=== PATIENT | female | born 1965 | race Caucasian/White ===

== ENCOUNTER 2021-05-03 09:46 | Outpatient (RCR) | payer MEDICAID, SELFPAY ==
[2021-05-03 10:08] VITALS: BP 153/69; PULSE 105; TEMP 36.4
--- NOTE | 2021-05-03 13:30 | HP.PCM_ITS ---
History of Present Illness Date of Service: 05/03/21 Chief Complaint: Lower back ulcer History of Wound: Paige is a very pleasant 56-year old female who presents to the wound healing center today (05/03/2021) for transition of care for a pressure ulcer of her lower back. She has a history of neuropathy, and COVID-19 infection which required intubation and ECMO. It was during the time that she was receiving ECMO that she developed her lower back ulcer. She is not a smoker, she is nondiabetic, and she does not take anticoagulation. Since her COVID-19 infection, she requires daily use of oxygen at 2 L/min. She recently completed a course of steroids for bronchitis. She was previously being treated for her pressure ulcer in [place], [place]. Throughout her course, her wound care has consisted of a surgical debridement, weekly excisional debridements, the use of the wound VAC, and Aquacel Ag dressings. She recently relocated to [place]. Since relocating, she has ran out of her Aquacel and wound supplies, and has been using daily wet-to-dry saline dressing changes. She cleanses the wound with saline. She previously had a tunnel within her lower back ulcer at 12:00, though her son (who performs her dressing changes) believes this has closed. She sleeps on her stomach at night. She has not been on any antibiotics in recent months. She had lab work completed a couple months ago with her primary care doctor, which she reports were unremarkable. The patient denies fever, chills, general malaise, or poor appetite. The patient has not had increased redness, swelling, or purulent/malodorous drainage from affected area. She rarely has any significant pain from her ulcer. [facility] Medical History (Updated 05/03/21 @ 14:03 by Jeanna Deras NP, RESPIRATORY EQUIPMENT ASSISTANT-C) Acute hypoxemic respiratory failure due to COVID-19 Obesity Pressure ulcer of unspecified part of back, stage 3 Home Medications acetaminophen [Tylenol] 325 mg PO Q6H 05/03/21 [History Last Taken Unknown] gabapentin 400 mg PO TID 05/03/21 [History Last Taken Unknown] ibuprofen 400 mg PO Q6H 05/03/21 [History Last Taken Unknown] mecobalamin (vitamin B12) [B12 Active] 1,000 mcg PO DAILY 05/03/21 [History Last Taken Unknown] ROS Constitutional Constitutional: Denies chills, fever(s) or night sweats Eyes Eyes: Denies change in vision or double vision ENT HEENT: Denies lip swelling or tongue swelling Cardiovascular Cardiovascular: Denies chest pain, leg edema or palpitations Respiratory/Chest Respiratory/Chest: Reports portable oxygen @ home and shortness of breath with exertion Gastrointestinal Gastrointestinal: Denies diarrhea, nausea or vomiting Genitourinary Genitourinary: Denies dysuria or hematuria Musculoskeletal Musculoskeletal: Reports difficulty walking, extremity pain, numbness, tingling and other Details: Ambulates with walker Integumentary Integumentary: Reports wounds; Denies rash Neurologic Neurologic: Reports numbness; Denies abnormal speech or focal weakness Endocrine Endocrinology: Denies cold intolerance, heat intolerance, polydipsia or polyuria Hematologic/Lymphatic Hematologic/Lymphatic: Denies easy bleeding or easy bruising Vital Signs Vital Signs Vital Signs: 05/03/21 10:08 Temperature 97.5 F L Temperature Source Temporal Pulse Rate 105 H Blood Pressure 153/69 H Blood Pressure Mean 97 Blood Pressure Source Monitor Blood Pressure Position Semi-Fowlers Blood Pressure Location Left Arm Physical Exam Const alert, no apparent distress and healthy appearing General Appearance: cooperative, comfortable and well kempt Nutritional Appearance: obese HEENT Head and Scalp: normocephalic and atraumatic Eyes EOMs intact bilaterally Neck supple and no JVD Resp normal respiratory effort, normal air movement and no use of accessory muscles Resp Narrative: On oxygen via nasal cannula 2 L/min Effort and Inspection: able to speak in complete sentences Auscultation: clear to auscultation bilaterally; Negative for crackles, rales, rhonchi or wheezes Cardio regular rate and regular rhythm Extremity normal capillary refill General Extremity: Negative for clubbing or cyanosis Skin Wounds: wounds noted No malodorous Wound Narrative: Midline lower back ulcer with subcutaneous layer exposed. There is a 10 mm tunnel at 12:00. No undermining or probing to bone. There is a small amount of devitalized tissue. No periulcer erythema, warmth or tenderness. No purulent or malodorous drainage. Neuro oriented x3, moves all extremities and no focal motor deficits Psych mental status grossly normal, cooperative and affect normal Insight: insight good Judgement: judgement good Debridement Note Debridement Note Wound debrided: Low back ulcer Laterality: Not Applicable Wound Grade/Stage: stage 3 Type of Debridement: Excisional debridement Anesthesia Used: 5% Lidocaine Gel Depth: in the subcutaneous layer Percentage of wound debrided: 100 Instrument Used: 3mm curette Tissue Removed: Slough and devitalized tissue Severity: Fat Layer Exposed Amount of bleeding with debridement: Mild Bleeding Controlled with: Pressure Patient tolerated procedure: Patient tolerated procedure well Post-Debridement Measurements and Additional Note: Post-Debridement Measurements/Treatment WILLIAM - Nurse 1 - General Ulcer Assessment Start: 05/03/21 10:08 Freq: Status: Active Protocol: CINTIA Activity Type Activity Date Activity User E-Sign Co-Sign Detail Recorded Client Recorded Date Recorded By Document 05/03/21 10:08 REMIGIO [id number] 05/03/21 10:21 REMIGIO 05/03/21 10:08 WILLIAM - Today's Visit Information Type of service Initial Visit Arrival Mode Ambulatory, Walker Patient Identification Verified (Name & Yes ) Vital Signs Temperature (97.8 F-99.1 F) 97.5 F L Temperature Source Temporal Pulse Rate (60-100) 105 H Pulse Location Monitor Blood Pressure (90/60-120/80) 153/69 H Blood Pressure Mean (mm Hg) 97 Source Monitor Position Semi-Fowlers Blood Pressure Location Left Arm History Since Last Visit- (Skip if this is Patient's initial visit) Have you changed medications since your No last visit? Any new allergies or adverse reactions No Had a fall/change in ADL's that may No increase risk of falls Signs or symptoms of abuse and/or No neglect since last visit Have you been in the hospital since your No last visit? Has dressing in place as prescribed Yes Has compression in place as prescribed N/A Has offloadiing in place as prescribed N/A Experienced any changes in pain level or No management Left Footwear Regular Shoe Right Footwear Regular Shoe Pain Scale: 0-10 Numeric Is Patient Pain Free? Yes - Nurse 1 - General Ulcer Measurement Start: 05/03/21 10:08 Freq: Status: Active Protocol: Activity Type Activity Date Activity User E-Sign Co-Sign Detail Recorded Client Recorded Date Recorded By Document 05/03/21 10:08 REMIGIO [id number] 05/03/21 10:21 REMIGIO 05/03/21 10:08 Wound Center Nurse 1 #1 Lower Back -Current Size (cm) - Length 3 -Current Size (cm) - Width 0.6 -Current Size (cm) - Depth 0.1 -Total Square Cm 1.8 -Exudate Amt Small -Exudate Type Serosanguineous -Wound Margin Distinct, Outline Attached -Granulation Amt Medium (34-66%) -Granulation Quality Red -Necrosis Amt Medium (34-66%) -Necrotic Tissue Type Adherent Slough -Texture (Joseline-wound Skin Appearance) Assessed, Scarring -Moisture (Joseline-wound Skin Appearance) Assessed, Maceration -Color (Joseline-wound Skin Appearance) No Abnormality, Assessed -Temperature (Joseline-wound Skin No Abnormality Appearance) (Pt Warm) -Tenderness on Palpation (Joseline-wound No Skin Appearance) -Ulcer Cleansing Rinsed/ Irrigated with Saline -Foul Odor after Cleansing No -Anesthetic Used 5% Lidocaine Gel WC - Nurse 2 - General Ulcer CM Notes Start: 05/03/21 10:08 Freq: Status: Active Protocol: Activity Type Activity Date Activity User E-Sign Co-Sign Detail Recorded Client Recorded Date Recorded By Document 05/03/21 12:59 PL [id number] 05/03/21 13:00 PL 05/03/21 12:59 Wound Center Nurse 2 -Time 10:50 -Correct Patient Yes -Correct Side, Site, Position Yes -Correct Procedure Yes -Procedure Performed Yes -Type of Procedure Debridement -Clinical Debridement Subcutaneous -Tissue Removed Subcutaneous -Post Debridement (cm) - Length 1.2 -Post Debridement (cm) - Width 3.8 -Post Debridement (cm) - Depth 0.2 -Total Square (Post) (cm) 4.56 -Area of Debridement (cm) - Length 1.2 -Area of Debridement (cm) - Width 3.8 -Total Square (Area) (cm) 4.56 -Tunneling No -Undermining/Tunneling No -Circular Undermining No -Wound/Ulcer Outcome Not Healed -Ulcer Cleansing Rinsed/ Irrigated with Saline -Foul Odor after Cleansing No -Bioengineered Tissue No -Bleeding Controlled with Pressure -Treatment Response Procedure Tolerated Well -Debridement - Subq, 1st 20sq cm Yes WC - Nurse 3 - General Ulcer D/C NN Start: 05/03/21 10:08 Freq: Status: Active Protocol: Activity Type Activity Date Activity User E-Sign Co-Sign Detail Recorded Client Recorded Date Recorded By Document 05/03/21 11:10 GIOVANNA [id number] 05/03/21 11:11 GIOVANNA 05/03/21 11:10 Wound Care Nurse 3 -Ulcer Cleansing Rinsed/ Irrigated with Saline -Primary Dressing Applied Aquacel Rope -Primary Dressing Covered/Secured with Dry Gauze, Secured with Tape -Aquacel Rope 1 Pain Scale: 0-10 Numeric Is Patient Pain Free? Yes WC - Visit Discharge Discharge Condition Stable Ambulatory Status Ambulatory Transportation Private Auto Charges/Coding Visit Charges Office Visits / Consults: 33740 OV L4 New Procedures Integumentary 111xxx-113xx: [id number] [place] subq tissue 20 sq cm/< Assessment/Plan Assessment/Plan (1) Pressure ulcer of unspecified part of back, stage 3: CODE(S): L89.103 - Pressure ulcer of unspecified part of back, stage 3 (2) Obesity: CODE(S): E66.9 - Obesity, unspecified QUALIFIERS: Obesity type: unspecified obesity type Obesity classification: unspecified obesity classification Serious obesity comorbidity presence: unspecified whether serious comorbidity present Qualified Code(s): E66.9 - Obesity, unspecified PLAN: Debridement performed today in clinic as annotated above. Aquacel Ag rope packed into 12:00 tunnel and applied to wound base. At home wound-care instructions: Change Aquacel Ag rope packing/dressing once daily or more frequently as needed due to contamination. Wash wounds daily with antibacterial soap and water, rinse with saline, and dry thoroughly before each dressing change. Compression: N/A Off-loading: The patient was instructed to avoid pressure and friction on the affected areas. Reposition every 2 hours at minimum. Frequent ambulation is encouraged. Diet: Patient encouraged to increase protein intake while taking caution to avoid high carbohydrate and/or sugar intake. Labs/cultures/imaging: Cultures deferred today due to absence of clinical signs of infection. We will continue to monitor. Recent lab work will be requested from patient's previous PCP. The need for repeat labs will be continually reassessed based on patient's progress. Follow-up: Return to clinic in 2 weeks for re-evaluation. Return sooner or report to the emergency room should symptoms worsen, or new symptoms arise. Note: [employer] speech recognition data security consultant software was used to create portions of this document. Sound-alike and misspelled words, as well as other data security consultant errors may be contained in the documentation.
== END 2021-05-14 23:59 ==
LOC: WC 09:46
PROVIDERS: Visit Provider Nurse Practitioner Family
DX: L89.103 Pressure ulcer of unspecified part of back, stage 3 (principal); J96.01 Acute respiratory failure with hypoxia; U09.9 Post COVID-19 condition, unspecified; E66.9 Obesity, unspecified; Z79.899 Other long term (current) drug therapy; Z79.1 Long term (current) use of non-steroidal anti-inflammatories (NSAID); Z99.81 Dependence on supplemental oxygen
CPT/HCPCS: 11042; 99213; G0463

== ENCOUNTER 2021-05-31 10:00 | Outpatient (RCR) | payer MEDICAID, SELFPAY ==
[2021-05-15 00:39] VITALS: BP 153/69; PULSE 105; TEMP 36.4
[2021-05-17 10:15] VITALS: BP 163/75; PULSE 73; TEMP 36.2
--- NOTE | 2021-05-17 14:29 | PCM.WC.PN ---
History of Present Illness Date of Service: 05/17/21 Chief Complaint: Lower back ulcer History of Wound: Paige is a very pleasant 56-year old female who presents to the wound healing center today (05/03/2021) for transition of care for a pressure ulcer of her lower back. She has a history of neuropathy, and COVID-19 infection which required intubation and ECMO. It was during the time that she was receiving ECMO that she developed her lower back ulcer. She is not a smoker, she is nondiabetic, and she does not take anticoagulation. Since her COVID-19 infection, she requires daily use of oxygen at 2 L/min. She recently completed a course of steroids for bronchitis. She was previously being treated for her pressure ulcer in [place], [place]. Throughout her course, her wound care has consisted of a surgical debridement, weekly excisional debridements, the use of the wound VAC, and Aquacel Ag dressings. She recently relocated to [place]. Since relocating, she has ran out of her Aquacel and wound supplies, and has been using daily wet-to-dry saline dressing changes. She cleanses the wound with saline. She previously had a tunnel within her lower back ulcer at 12:00, though her son (who performs her dressing changes) believes this has closed. She sleeps on her stomach at night. She has not been on any antibiotics in recent months. She had lab work completed a couple months ago with her primary care doctor, which she reports were unremarkable. The patient denies fever, chills, general malaise, or poor appetite. The patient has not had increased redness, swelling, or purulent/malodorous drainage from affected area. She rarely has any significant pain from her ulcer. Progress of Wound: Improvement in the tunneling depth of the patient's low back ulcer, though width of the ulcer is minimally increased today. The patient has been compliant with the use of Aquacel Ag rope, and has been tolerating this well. She reports some mild increase in her low back discomfort associated with her ulcer. The patient denies fever, chills, general malaise, or poor appetite. The patient has not had increased redness, swelling, or purulent/malodorous drainage from affected area. Objective Data Objective Data Vital Signs: Vital Signs Temp Pulse BP 97.1 F L 73 163/75 H 05/17/21 10:15 05/17/21 10:15 05/17/21 10:15 Charges/Coding Procedures Integumentary 111xxx-113xx: [id number] [place] subq tissue 20 sq cm/< Physical Exam Const alert, no apparent distress and healthy appearing General Appearance: cooperative, comfortable and well kempt Nutritional Appearance: obese HEENT Head and Scalp: normocephalic and atraumatic Eyes EOMs intact bilaterally Neck supple and no JVD Resp normal respiratory effort, normal air movement and no use of accessory muscles Resp Narrative: On oxygen via nasal cannula 2 L/min Effort and Inspection: able to speak in complete sentences Skin Wounds: wounds noted No malodorous Wound Narrative: Midline lower back ulcer with subcutaneous layer exposed. There is a tunnel at 12:00. No undermining or probing to bone. There is a small amount of devitalized tissue. No periulcer erythema, warmth or tenderness. No purulent or malodorous drainage. Neuro oriented x3, moves all extremities and no focal motor deficits Psych mental status grossly normal, cooperative and affect normal Insight: insight good Judgement: judgement good Debridement Note Debridement Note Wound debrided: Low back ulcer Laterality: Not Applicable Type of Debridement: Excisional debridement Anesthesia Used: 5% Lidocaine Gel Depth: in the subcutaneous layer Percentage of wound debrided: 100 Instrument Used: 3mm curette Tissue Removed: Slough and devitalized tissue Severity: Fat Layer Exposed Amount of bleeding with debridement: Mild Bleeding Controlled with: Pressure Patient tolerated procedure: Patient tolerated procedure well Post-Debridement Measurements and Additional Note: Post-Debridement Measurements/Treatment WILLIAM - Nurse 1 - General Ulcer Assessment Start: 05/17/21 10:15 Freq: Status: Active Protocol: CINTIA Activity Type Activity Date Activity User E-Sign Co-Sign Detail Recorded Client Recorded Date Recorded By Document 05/17/21 10:15 REMIGIO [id number] 05/17/21 10:17 REMIGIO 05/17/21 10:15 WILLIAM - Today's Visit Information Type of service Follow-up Visit (Physician/PEDIATRIC LICENSED PRACTICAL NURSE ) Arrival Mode Ambulatory, Walker Patient Identification Verified (Name & Yes ) Patient Requires Transmission-Based No Precautions Vital Signs Temperature (97.8 F-99.1 F) 97.1 F L Temperature Source Temporal Pulse Rate (60-100) 73 Pulse Location Monitor Blood Pressure (90/60-120/80) 163/75 H Blood Pressure Mean (mm Hg) 104 Source Monitor History Since Last Visit- (Skip if this is Patient's initial visit) Have you changed medications since your No last visit? Any new allergies or adverse reactions No Had a fall/change in ADL's that may No increase risk of falls Signs or symptoms of abuse and/or No neglect since last visit Have you been in the hospital since your No last visit? Has dressing in place as prescribed Yes Has compression in place as prescribed N/A Has offloadiing in place as prescribed N/A Experienced any changes in pain level or No management Left Footwear Regular Shoe Right Footwear Regular Shoe WC - Nurse 1 - General Ulcer Measurement Start: 05/17/21 10:15 Freq: Status: Active Protocol: Activity Type Activity Date Activity User E-Sign Co-Sign Detail Recorded Client Recorded Date Recorded By Document 05/17/21 10:15 AK [id number] 05/17/21 10:17 AK 05/17/21 10:15 Wound Center Nurse 1 #1 Lower Back -Combined with other wound No -Current Size (cm) - Length 1 -Current Size (cm) - Width 3 -Current Size (cm) - Depth 0.2 -Total Square Cm 3 -Photo Taken No -Epithelialization Small 1-33% -Tunneling No -Undermining/Tunneling No -Circular Undermining No -Exudate Amt Small -Exudate Type Serosanguineous -Wound Margin Distinct, Outline Attached -Granulation Amt Small (1-33%) -Granulation Quality [place] -Slough/Fibrin Yes -Necrosis Amt Small (1-33%) -Necrotic Tissue Type Adherent Slough -Structure Exposed N/A -Texture (Joseline-wound Skin Appearance) Assessed, Scarring -Moisture (Joseline-wound Skin Appearance) No Abnormality, Assessed -Color (Joseline-wound Skin Appearance) No Abnormality, Assessed -Temperature (Joseline-wound Skin No Abnormality Appearance) (Pt Warm) -Tenderness on Palpation (Joseline-wound No Skin Appearance) -Ulcer Cleansing Rinsed/ Irrigated with Saline -Foul Odor after Cleansing No -Anesthetic Used 5% Lidocaine Gel WC - Nurse 2 - General Ulcer CM Notes Start: 05/17/21 10:15 Freq: Status: Active Protocol: Activity Type Activity Date Activity User E-Sign Co-Sign Detail Recorded Client Recorded Date Recorded By Document 05/17/21 13:37 PL [id number] 05/17/21 13:38 PL 05/17/21 13:37 Wound Center Nurse 2 -Time 10:37 -Correct Patient Yes -Correct Side, Site, Position Yes -Correct Procedure Yes -Procedure Performed Yes -Type of Procedure Debridement -Clinical Debridement Subcutaneous -Tissue Removed Subcutaneous -Post Debridement (cm) - Length 1.2 -Post Debridement (cm) - Width 3.0 -Post Debridement (cm) - Depth 0.1 -Total Square (Post) (cm) 3.60 -Area of Debridement (cm) - Length 1.2 -Area of Debridement (cm) - Width 3.0 -Total Square (Area) (cm) 3.60 -Tunneling Yes -Tunneling Position (O'clock) 12 -Tunneling Distance (cm) 0.5 -Undermining/Tunneling No -Circular Undermining No -Wound/Ulcer Outcome Not Healed -Ulcer Cleansing Rinsed/ Irrigated with Saline -Foul Odor after Cleansing No -Bioengineered Tissue No -Bleeding Controlled with Pressure -Treatment Response Procedure Tolerated Well -Debridement - Subq, 1st 20sq cm Yes WC - Nurse 3 - General Ulcer D/C NN Start: 05/17/21 10:15 Freq: Status: Active Protocol: Activity Type Activity Date Activity User E-Sign Co-Sign Detail Recorded Client Recorded Date Recorded By Document 05/17/21 11:03 ND [id number] 05/17/21 11:05 ND 05/17/21 11:03 Wound Care Nurse 3 -Ulcer Cleansing Rinsed/ Irrigated with Saline -Primary Dressing Applied Aquacel Rope -Primary Dressing Covered/Secured with Dry Gauze, Secured with Tape -Aquacel Rope 1 WC - Visit Discharge Discharge Condition Stable Ambulatory Status Ambulatory Transportation Private Auto Medication Reconcilliation completed & No provided to patient/care provider Clinical Summary of Care Provided Yes Notes: educated on dressing Assessment/Plan Assessment/Plan (1) Pressure ulcer of unspecified part of back, stage 3: CODE(S): L89.103 - Pressure ulcer of unspecified part of back, stage 3 (2) Obesity: CODE(S): E66.9 - Obesity, unspecified QUALIFIERS: Obesity type: unspecified obesity type Obesity classification: unspecified obesity classification Serious obesity comorbidity presence: unspecified whether serious comorbidity present Qualified Code(s): E66.9 - Obesity, unspecified PLAN: Debridement performed today in clinic as annotated above. Aquacel Ag rope packed into 12:00 tunnel and applied to wound base. At home wound-care instructions: Change Aquacel Ag rope packing/dressing once daily or more frequently as needed due to contamination. Wash wounds daily with antibacterial soap and water, rinse with saline, and dry thoroughly before each dressing change. Compression: N/A Off-loading: The patient was instructed to avoid pressure and friction on the affected areas. Reposition every 2 hours at minimum. Frequent ambulation is encouraged. Diet: Patient encouraged to increase protein intake while taking caution to avoid high carbohydrate and/or sugar intake. Labs/cultures/imaging: Cultures collected today due to mild increase in ulcer related pain. Recent lab work will be requested from patient's previous PCP. The need for repeat labs will be continually reassessed based on patient's progress. Follow-up: Return to clinic in 2 weeks for re-evaluation. Return sooner or report to the emergency room should symptoms worsen, or new symptoms arise. Note: [employer] speech recognition educational assistant software was used to create portions of this document. Sound-alike and misspelled words, as well as other educational assistant errors may be contained in the documentation.
[2021-05-31 11:32] VITALS: BP 134/73; PULSE 95; TEMP 35.5
--- NOTE | 2021-06-03 20:30 | PCM.WC.PN ---
History of Present Illness Date of Service: 05/31/21 Chief Complaint: Lower back ulcer History of Wound: Paige is a very pleasant 56-year old female who presents to the wound healing center today (05/03/2021) for transition of care for a pressure ulcer of her lower back. She has a history of neuropathy, and COVID-19 infection which required intubation and ECMO. It was during the time that she was receiving ECMO that she developed her lower back ulcer. She is not a smoker, she is nondiabetic, and she does not take anticoagulation. Since her COVID-19 infection, she requires daily use of oxygen at 2 L/min. She recently completed a course of steroids for bronchitis. She was previously being treated for her pressure ulcer in [place], [place]. Throughout her course, her wound care has consisted of a surgical debridement, weekly excisional debridements, the use of the wound VAC, and Aquacel Ag dressings. She recently relocated to [place]. Since relocating, she has ran out of her Aquacel and wound supplies, and has been using daily wet-to-dry saline dressing changes. She cleanses the wound with saline. She previously had a tunnel within her lower back ulcer at 12:00, though her son (who performs her dressing changes) believes this has closed. She sleeps on her stomach at night. She has not been on any antibiotics in recent months. She had lab work completed a couple months ago with her primary care doctor, which she reports were unremarkable. The patient denies fever, chills, general malaise, or poor appetite. The patient has not had increased redness, swelling, or purulent/malodorous drainage from affected area. She rarely has any significant pain from her ulcer. Progress of Wound: Patient's wound has improved in size and appearance. Culture from 05/17/2021 was positive for 1+ MRSA and 1+ Proteus mirabilis; anaerobic studies were positive. She was started on a 10-day course of cefdinir, and a 10-day course of doxycycline. She is tolerating her antibiotics well. The patient denies fever, chills, general malaise, or poor appetite. The patient has not had increased redness, swelling, or purulent/malodorous drainage from affected area. Objective Data Objective Data Vital Signs: Vital Signs Temp Pulse BP 96 F L 95 134/73 H 05/31/21 11:32 05/31/21 11:32 05/31/21 11:32 Lab / Micro Data Micro: Microbiology 05/17/21 10:45 Wound Abcess - Back Gram Stain - Final 05/17/21 10:45 Wound Abcess - Back Wound Culture - Final Meth. resistant Staph. aureus Proteus mirabilis 05/17/21 10:45 Wound Abcess - Back Anaerobic Culture - Final Anaerobic cocci Charges/Coding Procedures Integumentary [id number]: [id number] [place] subq tissue 20 sq cm/< Physical Exam Const alert, no apparent distress and healthy appearing General Appearance: cooperative, comfortable and well kempt Nutritional Appearance: obese HEENT Head and Scalp: normocephalic and atraumatic Eyes EOMs intact bilaterally Neck supple and no JVD Resp normal respiratory effort, normal air movement and no use of accessory muscles Resp Narrative: On oxygen via nasal cannula 2 L/min Effort and Inspection: able to speak in complete sentences Skin Wounds: wounds noted No malodorous Wound Narrative: Midline lower back ulcer with subcutaneous layer exposed. No tunneling noted today. No undermining or probing to bone. There is a small amount of devitalized tissue. No periulcer erythema, warmth or tenderness. No purulent or malodorous drainage. Neuro oriented x3, moves all extremities and no focal motor deficits Psych mental status grossly normal, cooperative and affect normal Insight: insight good Judgement: judgement good Debridement Note Debridement Note Wound debrided: Low back ulcer Laterality: Not Applicable Type of Debridement: Excisional debridement Anesthesia Used: 5% Lidocaine Gel Depth: in the subcutaneous layer Percentage of wound debrided: 100 Instrument Used: 3mm curette Tissue Removed: Slough and devitalized tissue Severity: Fat Layer Exposed Amount of bleeding with debridement: Mild Bleeding Controlled with: Pressure Patient tolerated procedure: Patient tolerated procedure well Post-Debridement Measurements and Additional Note: Post-Debridement Measurements/Treatment WC - Nurse 1 - General Ulcer Assessment Start: 05/17/21 10:15 Freq: Status: Active Protocol: CINTIA Activity Type Activity Date Activity User E-Sign Co-Sign Detail Recorded Client Recorded Date Recorded By Document 05/17/21 10:15 AK [id number] 05/17/21 10:17 AK Document 05/31/21 11:32 AK [id number] 05/31/21 11:34 AK 05/17/21 05/31/21 10:15 11:32 WC - Today's Visit Information Type of service Follow-up Visit Follow-up Visit (Physician/COMMUNICATIONS DEPARTMENT CHAIR (Physician/COMMUNICATIONS DEPARTMENT CHAIR ) ) Arrival Mode Ambulatory, Ambulatory Walker Patient Identification Verified (Name & Yes Yes ) Patient Requires Transmission-Based No No Precautions Safety Precautions NA Vital Signs Temperature (97.8 F-99.1 F) 97.1 F L 96 F L Temperature Source Temporal Temporal Pulse Rate (60-100) 73 95 Pulse Location Monitor Monitor Blood Pressure (90/60-120/80) 163/75 H 134/73 H Blood Pressure Mean (mm Hg) 104 93 Source Monitor Monitor History Since Last Visit- (Skip if this is Patient's initial visit) Have you changed medications since your No No last visit? Any new allergies or adverse reactions No No Had a fall/change in ADL's that may No No increase risk of falls Signs or symptoms of abuse and/or No No neglect since last visit Have you been in the hospital since your No No last visit? Has dressing in place as prescribed Yes Yes Has compression in place as prescribed N/A N/A Has offloadiing in place as prescribed N/A N/A Experienced any changes in pain level or No No management Left Footwear Regular Shoe Regular Shoe Right Footwear Regular Shoe Regular Shoe WC - Nurse 1 - General Ulcer Measurement Start: 05/17/21 10:15 Freq: Status: Active Protocol: Activity Type Activity Date Activity User E-Sign Co-Sign Detail Recorded Client Recorded Date Recorded By Document 05/17/21 10:15 AK [id number] 05/17/21 10:17 AK Document 05/31/21 11:32 AK [id number] 05/31/21 11:34 AK 05/17/21 05/31/21 10:15 11:32 Wound Center Nurse 1 #1 Lower Back -Combined with other wound No No -Current Size (cm) - Length 1 2.5 -Current Size (cm) - Width 3 0.4 -Current Size (cm) - Depth 0.2 0.2 -Total Square Cm 3 1.00 -Photo Taken No No -Epithelialization Small 1-33% Small 1-33% -Tunneling No No -Undermining/Tunneling No No -Circular Undermining No No -Change in Wound Grade/Stage No -Exudate Amt Small Small -Exudate Type Serosanguineous Serosanguineous -Wound Margin Distinct, Distinct, Outline Outline Attached Attached -Granulation Amt Small (1-33%) -Granulation Quality [place] N/A -Slough/Fibrin Yes Yes -Necrosis Amt Small (1-33%) Medium (34-66%) -Necrotic Tissue Type Adherent Slough Adherent Slough -Structure Exposed N/A N/A -Texture (Joseline-wound Skin Appearance) Assessed, Assessed, Scarring Scarring -Moisture (Joseline-wound Skin Appearance) No Abnormality, No Abnormality, Assessed Assessed -Color (Joseline-wound Skin Appearance) No Abnormality, No Abnormality, Assessed Assessed -Temperature (Joseline-wound Skin No Abnormality No Abnormality Appearance) (Pt Warm) (Pt Warm) -Tenderness on Palpation (Joseline-wound No No Skin Appearance) -Ulcer Cleansing Rinsed/ Rinsed/ Irrigated with Irrigated with Saline Saline -Foul Odor after Cleansing No No -Anesthetic Used 5% Lidocaine 4% Lidocaine Gel Solution Lower Limb Edema Present No WC - Nurse 2 - General Ulcer CM Notes Start: 05/17/21 10:15 Freq: Status: Active Protocol: Activity Type Activity Date Activity User E-Sign Co-Sign Detail Recorded Client Recorded Date Recorded By Document 05/17/21 13:37 PL [id number] 05/17/21 13:38 PL Document 05/31/21 12:34 PL [id number] 05/31/21 12:36 PL 05/17/21 05/31/21 13:37 12:34 Wound Center Nurse 2 #1 Lower Back -Time 10:37 11:04 -Correct Patient Yes Yes -Correct Side, Site, Position Yes Yes -Correct Procedure Yes Yes -Procedure Performed Yes Yes -Type of Procedure Debridement Debridement -Clinical Debridement Subcutaneous Subcutaneous -Tissue Removed Subcutaneous Subcutaneous -Post Debridement (cm) - Length 1.2 0.8 -Post Debridement (cm) - Width 3.0 3.0 -Post Debridement (cm) - Depth 0.1 0.3 -Total Square (Post) (cm) 3.60 2.40 -Area of Debridement (cm) - Length 1.2 0.8 -Area of Debridement (cm) - Width 3.0 3.0 -Total Square (Area) (cm) 3.60 2.40 -Tunneling Yes No -Tunneling Position (O'clock) 12 -Tunneling Distance (cm) 0.5 -Undermining/Tunneling No No -Circular Undermining No No -Wound/Ulcer Outcome Not Healed Not Healed -Ulcer Cleansing Rinsed/ Rinsed/ Irrigated with Irrigated with Saline Saline -Foul Odor after Cleansing No No -Bioengineered Tissue No No -Bleeding Controlled with Pressure Pressure -Treatment Response Procedure Procedure Tolerated Well Tolerated Well -Debridement - Subq, 1st 20sq cm Yes Yes WC - Nurse 3 - General Ulcer D/C NN Start: 05/17/21 10:15 Freq: Status: Active Protocol: Activity Type Activity Date Activity User E-Sign Co-Sign Detail Recorded Client Recorded Date Recorded By Document 05/17/21 11:03 MT [id number] 05/17/21 11:05 MT Document 05/31/21 11:32 AK [id number] 05/31/21 11:34 AK 05/17/21 05/31/21 11:03 11:32 Wound Care Nurse 3 #1 Lower Back -Ulcer Cleansing Rinsed/ Rinsed/ Irrigated with Irrigated with Saline Saline -Foul Odor after Cleansing No -Negative Pressure Wound Therapy N/A -Primary Dressing Applied Aquacel Rope Aquacel AG 4x4 -Other Dressing ABD -Primary Dressing Covered/Secured with Dry Gauze, Secured with Secured with Tape Tape -Aquacel AG 4x4 1 -Aquacel Rope 1 Vital Signs Temperature (97.8 F-99.1 F) 96 F L Temperature Source Temporal Pulse Rate (60-100) 95 Pulse Location Monitor Blood Pressure (90/60-120/80) 134/73 H Blood Pressure Mean (mm Hg) 93 Source Monitor WC - Visit Discharge Discharge Condition Stable Stable Ambulatory Status Ambulatory Ambulatory Transportation Private Auto Private Auto Medication Reconcilliation completed & No No provided to patient/care provider Clinical Summary of Care Provided Yes Yes Notes: educated on dressing Assessment/Plan Assessment/Plan (1) Pressure ulcer of unspecified part of back, stage 3: CODE(S): L89.103 - Pressure ulcer of unspecified part of back, stage 3 (2) Obesity: CODE(S): E66.9 - Obesity, unspecified QUALIFIERS: Obesity type: unspecified obesity type Obesity classification: unspecified obesity classification Serious obesity comorbidity presence: unspecified whether serious comorbidity present Qualified Code(s): E66.9 - Obesity, unspecified PLAN: Debridement performed today in clinic as annotated above. Aquacel Ag applied. At home wound-care instructions: Change Aquacel Ag dressing once daily or more frequently as needed due to contamination. Wash wounds daily with antibacterial soap and water, rinse with saline, and dry thoroughly before each dressing change. Compression: N/A Off-loading: The patient was instructed to avoid pressure and friction on the affected areas. Reposition every 2 hours at minimum. Frequent ambulation is encouraged. Diet: Patient encouraged to increase protein intake while taking caution to avoid high carbohydrate and/or sugar intake. Labs/cultures/imaging: Culture from 05/17/2021 was positive for 1+ MRSA and 1+ Proteus mirabilis; anaerobic studies were positive. She was started on a 10-day course of cefdinir, and a 10-day course of doxycycline. The need for repeat labs will be continually reassessed based on patient's progress. Follow-up: Return to clinic in 3 weeks for re-evaluation. Return sooner or report to the emergency room should symptoms worsen, or new symptoms arise. Note: [employer] speech recognition lumber carrier software was used to create portions of this document. Sound-alike and misspelled words, as well as other lumber carrier errors may be contained in the documentation.
== END 2021-06-14 23:59 ==
LOC: WC 10:00
PROVIDERS: Visit Provider Nurse Practitioner Family
DX: L89.103 Pressure ulcer of unspecified part of back, stage 3 (principal); E66.9 Obesity, unspecified; Z86.16 Personal history of COVID-19; Z99.81 Dependence on supplemental oxygen; G62.9 Polyneuropathy, unspecified
CPT/HCPCS: 11042; 87070; 87075; 87077; 87186; 87205

== ENCOUNTER 2021-07-05 10:15 | Outpatient (RCR) | payer MEDICAID, SELFPAY ==
[2021-06-15 00:35] VITALS: BP 134/73; PULSE 95; TEMP 35.5
[2021-07-05 10:43] VITALS: BP 146/95; PULSE 98; RESP 20; TEMP 36.5; O2SAT 2
--- NOTE | 2021-07-05 12:37 | HP.PCM_ITS ---
History of Present Illness Date of Service: 07/05/21 Chief Complaint: Lower back ulcer History of Wound: Paige is a very pleasant 56-year old female who presented to the wound healing center on 05/03/2021 for transition of care for a pressure ulcer of her lower back. She has a history of neuropathy, and COVID-19 infection which required intubation and ECMO. It was during the time that she was receiving ECMO that she developed her lower back ulcer. She is not a smoker, she is nondiabetic, and she does not take anticoagulation. Since her COVID-19 infection, she requires daily use of oxygen at 2 L/min. She recently completed a course of steroids for bronchitis. She was previously being treated for her pressure ulcer in [place], [place]. Throughout her course, her wound care has consisted of a surgical debridement, weekly excisional debridements, the use of the wound VAC, and Aquacel Ag dressings. She recently relocated to [place]. Since relocating, she has been using Aquacel Ag dressing to the low back ulcer. Her son performs her dressing changes for her. She sleeps on her stomach at night. In early May, she developed an increase in pain in her low back ulcer. On 05/17/2021, a wound culture was collected which revealed 1+ MRSA and 1+ Proteus mirabilis, positive anaerobic cocci. She was started on cefdinir 300 mg every 12 hours x10 days and doxycycline 100 mg twice daily x10 days, and completed these courses of antibiotics without complications. In recent weeks, her wound has increased in size. She also notes an increase in pain from her low back ulcer, and notes seeing dark yellow drainage on one of her dressings in the past week. She denies any fevers or chills. She also ran out of wound care supplies, and has been using a wound VAC adhesive dressing to secure her wound dressings. This has resulted in a rash of her low back, as well as pruritus. [facility] Medical History (Updated 07/05/21 @ 12:45 by Jeanna Deras NP, [facility]) Acute hypoxemic respiratory failure due to COVID-19 Asthma Back problem History of breast lump History of COVID-19 History of kidney stones History of migraine History of pneumonia Low back pain Neuropathy Obesity Pressure ulcer of unspecified part of back, stage 3 Sciatic nerve pain Seasonal allergies Vitamin B12 deficiency Home Medications acetaminophen [Tylenol] 325 mg PO Q6H 05/03/21 [History Last Taken Unknown] mecobalamin (vitamin B12) [B12 Active] 1,000 mcg PO DAILY 05/03/21 [History Last Taken Unknown] STOOL SOFTNER PO 05/21/21 [History Last Taken Unknown] albuterol sulfate 90 mcg/actuation aerosol inhaler 2 puff INHALATION PRN g 05/21/21 [History Last Taken Unknown] gabapentin 400 mg capsule 400 mg PO TID #270 cap 05/21/21 [Rx Last Taken Unknown] ibuprofen 200 mg capsule 600 mg PO Q6H PRN cap 05/21/21 [History Last Taken Unknown] triamcinolone acetonide 1 applic TOPICAL BID 7 Days #30 g 07/05/21 [Rx Last Taken Unknown] Allergy/AdvReac Type Severity Reaction Status Date / Time No Known Allergies Allergy Verified 05/21/21 15:13 Family History (Updated 05/21/21 @ 17:54 by Nicole Holland) Other Alcoholism Anxiety Depression Myocardial infarction Seizures TIA (transient ischemic attack) Surgical History History of tonsillectomy and adenoidectomy Social History (Updated 05/21/21 @ 15:18 by Nicole Holland) Smoking Status: Never smoker alcohol intake: never substance use type: does not use what type of physical activity do you participate in: walking frequency: daily ROS Constitutional Constitutional: Denies chills, fever(s) or night sweats Eyes Eyes: Denies change in vision or double vision ENT HEENT: Denies lip swelling or tongue swelling Cardiovascular Cardiovascular: Denies chest pain, leg edema or palpitations Respiratory/Chest Respiratory/Chest: Reports portable oxygen @ home and shortness of breath with exertion Gastrointestinal Gastrointestinal: Denies diarrhea, nausea or vomiting Genitourinary Genitourinary: Denies dysuria or hematuria Musculoskeletal Musculoskeletal: Reports difficulty walking, extremity pain, numbness, tingling and other Details: Ambulates with walker Integumentary Integumentary: Reports wounds; Denies rash Neurologic Neurologic: Reports numbness; Denies abnormal speech or focal weakness Endocrine Endocrinology: Denies cold intolerance, heat intolerance, polydipsia or polyuria Hematologic/Lymphatic Hematologic/Lymphatic: Denies easy bleeding or easy bruising Vital Signs Vital Signs Vital Signs: 07/05/21 10:43 Temperature 97.7 F L Temperature Source Temporal Pulse Rate 98 Respiratory Rate 20 H Blood Pressure 146/95 H Blood Pressure Mean 112 Blood Pressure Source Monitor Blood Pressure Position Sitting Blood Pressure Location Right Arm Pulse Ox 2 Oxygen Delivery Method Nasal Cannula Physical Exam Const alert, no apparent distress and healthy appearing General Appearance: cooperative, comfortable and well kempt Nutritional Appearance: obese HEENT Head and Scalp: normocephalic and atraumatic Eyes EOMs intact bilaterally Neck supple and no JVD Resp normal respiratory effort, normal air movement and no use of accessory muscles Resp Narrative: On oxygen via nasal cannula 2 L/min Effort and Inspection: able to speak in complete sentences Skin Wounds: wounds noted No malodorous Wound Narrative: Midline lower back ulcer with subcutaneous layer exposed, increased in size from last visit. No tunneling noted today. No undermining or probing to bone. There is a small amount of devitalized tissue. No periulcer e rythema, warmth or tenderness. No purulent or malodorous drainage. She has a periulcer rash and excoriation. Neuro oriented x3, moves all extremities and no focal motor deficits Psych mental status grossly normal, cooperative and affect normal Insight: insight good Judgement: judgement good Debridement Note Debridement Note Wound debrided: Midline low back ulcer Laterality: Not Applicable Type of Debridement: Excisional debridement Anesthesia Used: 4% Lidocaine Solution Depth: in the subcutaneous layer Percentage of wound debrided: 100 Instrument Used: 3mm curette Tissue Removed: Slough and devitalized tissue Severity: Fat Layer Exposed Amount of bleeding with debridement: Mild Bleeding Controlled with: Pressure Patient tolerated procedure: Patient tolerated procedure well Post-Debridement Measurements and Additional Note: Post-Debridement Measurements/Treatment - Nurse 1 - General Ulcer Assessment Start: 07/05/21 10:43 Freq: Status: Active Protocol: CINTIA Activity Type Activity Date Activity User E-Sign Co-Sign Detail Recorded Client Recorded Date Recorded By Document 07/05/21 10:43 AL [id number] 07/05/21 10:53 AL 07/05/21 10:43 - Today's Visit Information Type of service Follow-up Visit (Physician/EDUCATIONAL/DEVELOPMENT ASSISTANT ) Arrival Mode Walker Accompanied by self Patient Identification Verified (Name & Yes ) Vital Signs Temperature (97.8 F-99.1 F) 97.7 F L Temperature Source Temporal Pulse Rate (60-100) 98 Pulse Location Monitor Respiratory Rate (12-18) 20 H Respiratory rate source Observation Pulse Oximetry 2 Oxygen Delivery Method Nasal Cannula Blood Pressure (90/60-120/80) 146/95 H Blood Pressure Mean 112 Source Monitor Position Sitting Blood Pressure Location Right Arm History Since Last Visit- (Skip if this is Patient's initial visit) Has dressing in place as prescribed Yes Has compression in place as prescribed Yes Has offloadiing in place as prescribed Yes Left Footwear Regular Shoe Right Footwear Regular Shoe Pain Scale: 0-10 Numeric Is Patient Pain Free? Yes - Nurse 1 - General Ulcer Measurement Start: 07/05/21 10:43 Freq: Status: Active Protocol: Activity Type Activity Date Activity User E-Sign Co-Sign Detail Recorded Client Recorded Date Recorded By Document 07/05/21 10:43 AL [id number] 07/05/21 10:53 AL 07/05/21 10:43 Wound Center Nurse 1 #1 Lower Back -Current Size (cm) - Length 1.3 -Current Size (cm) - Width 1.9 -Current Size (cm) - Depth 0.2 -Total Square Cm 2.47 -Wound Margin Thickened & Rolled Under -Necrosis Amt Large (67-100%) -Necrotic Tissue Type Adherent Slough -Texture (Joseline-wound Skin Appearance) Assessed,Callus -Moisture (Joseline-wound Skin Appearance) Assessed -Color (Joseilne-wound Skin Appearance) Assessed -Temperature (Joseline-wound Skin No Abnormality Appearance) (Pt Warm) -Tenderness on Palpation (Joseline-wound No Skin Appearance) -Ulcer Cleansing Rinsed/ Irrigated with Saline -Foul Odor after Cleansing No -Anesthetic Used 4% Lidocaine Solution Lower Limb Edema Present NA - Nurse 2 - General Ulcer CM Notes Start: 07/05/21 10:43 Freq: Status: Active Protocol: Activity Type Activity Date Activity User E-Sign Co-Sign Detail Recorded Client Recorded Date Recorded By Document 07/05/21 12:21 PL [id number] 07/05/21 12:22 PL 07/05/21 12:21 Wound Center Nurse 2 #1 Lower Back -Time 11:00 -Correct Patient Yes -Correct Side, Site, Position Yes -Correct Procedure Yes -Procedure Performed Yes -Type of Procedure Debridement -Clinical Debridement Subcutaneous -Tissue Removed Subcutaneous -Post Debridement (cm) - Length 2.0 -Post Debridement (cm) - Width 2.5 -Post Debridement (cm) - Depth 0.2 -Total Square (Post) (cm) 5.00 -Area of Debridement (cm) - Length 2.0 -Area of Debridement (cm) - Width 2.5 -Total Square (Area) (cm) 5.00 -Tunneling No -Undermining/Tunneling No -Circular Undermining No -Wound/Ulcer Outcome Not Healed -Ulcer Cleansing Rinsed/ Irrigated with Saline -Foul Odor after Cleansing No -Bioengineered Tissue No -Bleeding Controlled with Pressure -Treatment Response Procedure Tolerated Well -Debridement - Subq, 1st 20sq cm Yes Pain Scale: 0-10 Numeric Is Patient Pain Free? Yes - Nurse 3 - General Ulcer D/C NN Start: 07/05/21 10:43 Freq: Status: Active Protocol: Activity Type Activity Date Activity User E-Sign Co-Sign Detail Recorded Client Recorded Date Recorded By Document 07/05/21 11:26 REMIIGO [id number] 07/05/21 11:27 REMIGIO 07/05/21 11:26 Wound Care Nurse 3 #1 Lower Back -Ulcer Cleansing Rinsed/ Irrigated with Saline -Foul Odor after Cleansing No -Negative Pressure Wound Therapy N/A -Primary Dressing Applied Aquacel AG 4x4 -Other Dressing ABD -Primary Dressing Covered/Secured with Secured with Tape -Aquacel AG 4x4 1 Pain Scale: 0-10 Numeric Is Patient Pain Free? Yes WC - Visit Discharge Discharge Condition Stable Transportation Private Auto Medication Reconcilliation completed & No provided to patient/care provider Clinical Summary of Care Provided Yes Charges/Coding Procedures Integumentary 111xxx-113xx: 85166 [place] subq tissue 20 sq cm/< Assessment/Plan Assessment/Plan (1) Pressure ulcer of unspecified part of back, stage 3: CODE(S): L89.103 - Pressure ulcer of unspecified part of back, stage 3 (2) Obesity: CODE(S): E66.9 - Obesity, unspecified QUALIFIERS: Obesity type: unspecified obesity type Obesity class ification: unspecified obesity classification Serious obesity comorbidity presence: unspecified whether serious comorbidity present Qualified Code(s): E66.9 - Obesity, unspecified (3) Low back pain: CODE(S): M54.50 - Low back pain, unspecified QUALIFIERS: Chronicity: unspecified PLAN: Debridement performed today in clinic as annotated above. Aquacel Ag applied. For patient's rash, a 1 week course of triamcinolone 0.1% ointment to be applied twice daily will be prescribed. At home wound-care instructions: Change Aquacel Ag dressing once daily or more frequently as needed due to contamination. Wash wounds daily with antibacterial soap and water, rinse with saline, and dry thoroughly before each dressing change. Avoid use of wound VAC adhesive dressings. Instead, use silicone tape to secure ABD pad. Compression: N/A Off-loading: The patient was instructed to avoid pressure and friction on the affected areas. Reposition every 2 hours at minimum. Frequent ambulation is encouraged. Diet: Patient encouraged to increase protein intake while taking caution to avoid high carbohydrate and/or sugar intake. Labs/cultures/imaging: Culture from 05/17/2021 was positive for 1+ MRSA and 1+ Proteus mirabilis; anaerobic studies were positive. She completed a 10-day course of cefdinir, and a 10-day course of doxycycline. A repeat culture was collected today due to increase in pain and report of purulent drainage. Follow-up: Return to clinic in 2 weeks for re-evaluation. Return sooner or report to the emergency room should symptoms worsen, or new symptoms arise. Note: [facility] speech recognition math interventionist software was used to create portions of this document. Sound-alike and misspelled words, as well as other math interventionist errors may be contained in the documentation.
== END 2021-07-15 23:59 ==
LOC: WC 10:15
PROVIDERS: Visit Provider Nurse Practitioner Family
DX: L89.103 Pressure ulcer of unspecified part of back, stage 3 (principal); M54.50 Low back pain, unspecified; E66.9 Obesity, unspecified; L29.9 Pruritus, unspecified; Z86.16 Personal history of COVID-19; Z99.81 Dependence on supplemental oxygen; G62.9 Polyneuropathy, unspecified; J45.909 Unspecified asthma, uncomplicated; Z79.899 Other long term (current) drug therapy
CPT/HCPCS: 11042; 87070; 87075; 87077; 87186; 87205

== ENCOUNTER 2021-08-09 10:00 | Outpatient (RCR) | payer MEDICAID, SELFPAY ==
[2021-07-16 00:41] VITALS: BP 146/95; PULSE 98; RESP 20; TEMP 36.5; O2SAT 2
[2021-07-26 11:10] VITALS: BP 160/101; PULSE 81; RESP 16; TEMP 36.2
--- NOTE | 2021-07-26 14:18 | PCM.WC.PN ---
History of Present Illness Date of Service: 07/26/21 Chief Complaint: Lower back ulcer History of Wound: Paige is a very pleasant 56-year old female who presented to the wound healing center on 05/03/2021 for transition of care for a pressure ulcer of her lower back. She has a history of neuropathy, and COVID-19 infection which required intubation and ECMO. It was during the time that she was receiving ECMO that she developed her lower back ulcer. She is not a smoker, she is nondiabetic, and she does not take anticoagulation. Since her COVID-19 infection, she requires daily use of oxygen at 2 L/min. She recently completed a course of steroids for bronchitis. She was previously being treated for her pressure ulcer in [place], [place]. Throughout her course, her wound care has consisted of a surgical debridement, weekly excisional debridements, the use of the wound VAC, and Aquacel Ag dressings. She recently relocated to [place]. Since relocating, she has been using Aquacel Ag dressing to the low back ulcer. Her son performs her dressing changes for her. She sleeps on her stomach at night. In early May, she developed an increase in pain in her low back ulcer. On 05/17/2021, a wound culture was collected which revealed 1+ MRSA and 1+ Proteus mirabilis, positive anaerobic cocci. She was started on cefdinir 300 mg every 12 hours x10 days and doxycycline 100 mg twice daily x10 days, and completed these courses of antibiotics without complications. In recent weeks, her wound has increased in size. She also notes an increase in pain from her low back ulcer, and notes seeing dark yellow drainage on one of her dressings in the past week. She denies any fevers or chills. She also ran out of wound care supplies, and has been using a wound VAC adhesive dressing to secure her wound dressings. This has resulted in a rash of her low back, as well as pruritus. Progress of Wound: The patient's lower back rash has resolved with the use of topical triamcinolone, and this has been discontinued. She completed her antibiotics as prescribed (Doxycycline and amoxicillin clavulanate). Her wound has improved in size and appearance today. She does note a few days of greenish colored drainage on her dressing in the past week. She denies any increase in pain. She has not had any fevers or chills or generalized malaise. Objective Data Objective Data Vital Signs: Vital Signs Temp Pulse Resp BP Pulse Ox 97.2 F L 81 16 160/101 H 2 07/26/21 11:10 07/26/21 11:10 07/26/21 11:10 07/26/21 11:10 07/16/21 00:41 Oxygen Delivery Method Room Air Charges/Coding Procedures Integumentary 111xxx-113xx: [id number] [place] subq tissue 20 sq cm/< Physical Exam Const alert, no apparent distress and healthy appearing General Appearance: cooperative, comfortable and well kempt Nutritional Appearance: obese HEENT Head and Scalp: normocephalic and atraumatic Eyes EOMs intact bilaterally Neck supple and no JVD Resp normal respiratory effort, normal air movement and no use of accessory muscles Effort and Inspection: able to speak in complete sentences Skin Wounds: wounds noted No malodorous Wound Narrative: Midline lower back ulcer with subcutaneous layer exposed, decreased in size from last visit. No tunneling noted today. No undermining or probing to bone. There is a small amount of devitalized tissue. No periulcer erythema, warmth or tenderness. No purulent or malodorous drainage. Neuro oriented x3, moves all extremities and no focal motor deficits Psych mental status grossly normal, cooperative and affect normal Insight: insight good Judgement: judgement good Debridement Note Debridement Note Wound debrided: Midline low back ulcer Type of Debridement: Excisional debridement Anesthesia Used: 4% Lidocaine Solution Depth: in the subcutaneous layer Percentage of wound debrided: 100 Instrument Used: 3mm curette Tissue Removed: Slough and devitalized tissue Severity: Fat Layer Exposed Amount of bleeding with debridement: Mild Bleeding Controlled with: Pressure Patient tolerated procedure: Patient tolerated procedure well Post-Debridement Measurements and Additional Note: Post-Debridement Measurements/Treatment - Nurse 1 - General Ulcer Assessment Start: 07/26/21 11:08 Freq: Status: Active Protocol: CINTIA Activity Type Activity Date Activity User E-Sign Co-Sign Detail Recorded Client Recorded Date Recorded By Document 07/26/21 11:10 [facility] [id number] 07/26/21 11:24 [facility] 07/26/21 11:10 - Today's Visit Information Type of service Follow-up Visit (Physician/HELIARC WELDER ) Arrival Mode Ambulatory, Walker Transfer Assistance None Patient Identification Verified (Name & Yes ) Patient Requires Transmission-Based No Precautions Vital Signs Temperature (97.8 F-99.1 F) 97.2 F L Temperature Source Temporal Pulse Rate (60-100) 81 Pulse Location Monitor Respiratory Rate (12-18) 16 Respiratory rate source Observation Oxygen Delivery Method Room Air Blood Pressure (90/60-120/80) 160/101 H Blood Pressure Mean (mm Hg) 120 Source Monitor Position Sitting Blood Pressure Location Left Forearm Comment COUNSELED ON BP History Since Last Visit- (Skip if this is Patient's initial visit) Have you changed medications since your No last visit? Any new allergies or adverse reactions No Had a fall/change in ADL's that may No increase risk of falls Signs or symptoms of abuse and/or No neglect since last visit Have you been in the hospital since your No last visit? Has dressing in place as prescribed Yes Has compression in place as prescribed N/A Has offloadiing in place as prescribed N/A Experienced any changes in pain level or No management Left Footwear Regular Shoe Right Footwear Regular Shoe Pain Scale: 0-10 Numeric Is Patient Pain Free? No L FOOT -Description Throbbing, Burning,Aching -Intensity 5 -Pain Aggravating Factors Sitting -Alleviating Factors/Interventions Turning/ Repositioning, Distraction, Will continue to monitor, Emotional Support WC - Nurse 1 - General Ulcer Measurement Start: 07/26/21 11:08 Freq: Status: Active Protocol: Activity Type Activity Date Activity User E-Sign Co-Sign Detail Recorded Client Recorded Date Recorded By Document 07/26/21 11:10 [facility] [id number] 07/26/21 11:24 [facility] 07/26/21 11:10 Wound Center Nurse 1 #1 Lower Back -Combined with other wound No -Current Size (cm) - Length 1.3 -Current Size (cm) - Width 1.7 -Current Size (cm) - Depth 0.3 -Total Square Cm 2.21 -Photo Taken No -Epithelialization None Present -Tunneling No -Undermining/Tunneling No -Circular Undermining No -Exudate Amt Large -Exudate Type Serosanguineous -Wound Margin Distinct, Outline Attached -Granulation Amt Small (1-33%) -Granulation Quality Red -Slough/Fibrin Yes -Necrosis Amt Large (67-100%) -Necrotic Tissue Type Adherent Slough -Texture (Joseline-wound Skin Appearance) Assessed, Scarring -Moisture (Joseline-wound Skin Appearance) Assessed -Color (Joseline-wound Skin Appearance) Assessed -Temperature (Joseline-wound Skin No Abnormality Appearance) (Pt Warm) -Tenderness on Palpation (Joseline-wound Yes Skin Appearance) -Ulcer Cleansing Soap and Water -Foul Odor after Cleansing No -Anesthetic Used 5% Lidocaine Gel WC - Nurse 3 - General Ulcer D/C NN Start: 07/26/21 11:08 Freq: Status: Active Protocol: Activity Type Activity Date Activity User E-Sign Co-Sign Detail Recorded Client Recorded Date Recorded By Document 07/26/21 12:36 AL [id number] 07/26/21 12:37 AL 07/26/21 12:36 Wound Care Nurse 3 -Ulcer Cleansing Rinsed/ Irrigated with Saline -Primary Dressing Applied Aquacel AG 4x4, Mepilex Border -Primary Dressing Covered/Secured with Dry Gauze -Aquacel AG 4x4 1 -Mepilex Border 3 Pain Scale: 0-10 Numeric Is Patient Pain Free? Yes WC - Visit Discharge Discharge Condition Stable Ambulatory Status Ambulatory Transportation Private Auto Medication Reconcilliation completed & No provided to patient/care provider Clinical Summary of Care Provided Yes Assessment/Plan Assessment/Plan (1) Pressure ulcer of unspecified part of back, stage 3: CODE(S): L89.103 - Pressure ulcer of unspecified part of back, stage 3 (2) Obesity: CODE(S): E66.9 - Obesity, unspecified QUALIFIERS: Obesity type: unspecified obesity type Obesity classification: unspecified obesity classification Serious obesity comorbidity presence: unspecified whether serious comorbidity present Qualified Code(s): E66.9 - Obesity, unspecified (3) Low back pain: CODE(S): M54.50 - Low back pain, unspecified QUALIFIERS: Chronicity: acute Back pain laterality: midline Sciatica presence: unspecified whether sciatica present Qualified Code(s): M54.50 - Low back pain, unspecified PLAN: Debridement performed today in clinic as annotated above. Aquacel Ag applied. At home wound-care instructions: Change Aquacel Ag dressing once daily or more frequently as needed due to contamination. Wash wounds daily with antibacterial soap and water, rinse with saline, and dry thoroughly before each dressing change. Avoid use of wound VAC adhesive dressings. Instead, use silicone tape to secure ABD pad. Compression: N/A Off-loading: The patient was instructed to avoid pressure and friction on the affected areas. Reposition every 2 hours at minimum. Frequent ambulation is encouraged. Diet: Patient encouraged to increase protein intake while taking caution to avoid high carbohydrate and/or sugar intake. Labs/cultures/imaging: Repeat culture ordered today due to concerning drainage in the past week. Antibiotics will be determined based on culture results. Follow-up: Return to clinic in 2 weeks for re-evaluation. Return sooner or report to the emergency room should symptoms worsen, or new symptoms arise. Note: [employer] speech recognition superintendent laundry software was used to create portions of this document. Sound-alike and misspelled words, as well as other superintendent laundry errors may be contained in the documentation.
--- NOTE | 2021-07-30 14:39 | WC ---
Patient was notified that wound culture produced a bacterial growth and that she would be started on an ATB. Levaquin 500mg PO QD x 14 days. She was also advised to shower with Hibi cleanse for one week and to have her son who assists with the dressings to shower with Hibi Cleanse also. Pt verbal acknowledged understanding.
[2021-08-09 10:16] VITALS: BP 154/99; PULSE 90; RESP 18; TEMP 36.6
--- NOTE | 2021-08-09 14:22 | PCM.WC.PN ---
History of Present Illness Date of Service: 08/09/21 Chief Complaint: Lower back ulcer History of Wound: Paige is a very pleasant 56-year old female who presented to the wound healing center on 05/03/2021 for transition of care for a pressure ulcer of her lower back. She has a history of neuropathy, and COVID-19 infection which required intubation and ECMO. It was during the time that she was receiving ECMO that she developed her lower back ulcer. She is not a smoker, she is nondiabetic, and she does not take anticoagulation. Since her COVID-19 infection, she requires daily use of oxygen at 2 L/min. She recently completed a course of steroids for bronchitis. She was previously being treated for her pressure ulcer in [place], [place]. Throughout her course, her wound care has consisted of a surgical debridement, weekly excisional debridements, the use of the wound VAC, and Aquacel Ag dressings. She recently relocated to [place]. Since relocating, she has been using Aquacel Ag dressing to the low back ulcer. Her son performs her dressing changes for her. She sleeps on her stomach at night. In early May, she developed an increase in pain in her low back ulcer. On 05/17/2021, a wound culture was collected which revealed 1+ MRSA and 1+ Proteus mirabilis, positive anaerobic cocci. She was started on cefdinir 300 mg every 12 hours x10 days and doxycycline 100 mg twice daily x10 days, and completed these courses of antibiotics without complications. In recent weeks, her wound has increased in size. She also notes an increase in pain from her low back ulcer, and notes seeing dark yellow drainage on one of her dressings in the past week. She denies any fevers or chills. She also ran out of wound care supplies, and has been using a wound VAC adhesive dressing to secure her wound dressings. This has resulted in a rash of her low back, as well as pruritus. Progress of Wound: The patient's lower back rash has resolved with the use of topical triamcinolone, and this has been discontinued. A repeat wound culture on 07/26/2021 was again positive for MRSA; she was started on a 2-week course of levofloxacin 500 mg daily; she is tolerating this well. Her wound has improved in size and appearance today. The patient denies fever, chills, general malaise, or poor appetite. The patient has not had increased redness, swelling, or malodorous drainage from affected area. Objective Data Objective Data Vital Signs: Vital Signs Temp Pulse Resp BP Pulse Ox 98 F 90 18 154/99 H 2 08/09/21 10:16 08/09/21 10:16 08/09/21 10:16 08/09/21 10:16 07/16/21 00:41 Oxygen Delivery Method Room Air Lab / Micro Data Micro: Microbiology 07/26/21 12:20 Wound Abcess - Back Gram Stain - Final 07/26/21 12:20 Wound Abcess - Back Wound Culture - Final Meth. resistant Staph. aureus 07/26/21 12:20 Wound Abcess - Back Anaerobic Culture - Final No anaerobic bacteria isolated. Charges/Coding Procedures Integumentary 111xxx-113xx: [id number] [place] subq tissue 20 sq cm/< Physical Exam Const alert, no apparent distress and healthy appearing General Appearance: cooperative, comfortable and well kempt Nutritional Appearance: obese HEENT Head and Scalp: normocephalic and atraumatic Eyes EOMs intact bilaterally Neck supple and no JVD Resp normal respiratory effort, normal air movement and no use of accessory muscles Effort and Inspection: able to speak in complete sentences Skin Wounds: wounds noted No malodorous Wound Narrative: Midline lower back ulcer with subcutaneous layer exposed, decreased slightly in size from last visit. No tunneling noted today. No undermining or probing to bone. There is a small amount of devitalized tissue. Wound bed is white, suspected to be due to fibrous exudate. No periulcer erythema, warmth or tenderness. No purulent or malodorous drainage. Small area of excoriation laterally (left) of wound. No opening. Neuro oriented x3, moves all extremities and no focal motor deficits Psych mental status grossly normal, cooperative and affect normal Insight: insight good Judgement: judgement good Debridement Note Debridement Note Wound debrided: Midline low back Laterality: Not Applicable Type of Debridement: Excisional debridement Anesthesia Used: 4% Lidocaine Solution Depth: in the subcutaneous layer Percentage of wound debrided: 100 Instrument Used: 3mm curette Tissue Removed: Slough and devitalized tissue Severity: Fat Layer Exposed Amount of bleeding with debridement: Mild Bleeding Controlled with: Pressure Patient tolerated procedure: Patient tolerated procedure well Post-Debridement Measurements and Additional Note: Post-Debridement Measurements/Treatment WC - Nurse 1 - General Ulcer Assessment Start: 07/26/21 11:08 Freq: Status: Active Protocol: CINTIA Activity Type Activity Date Activity User E-Sign Co-Sign Detail Recorded Client Recorded Date Recorded By Document 07/26/21 11:10 [facility] [id number] 07/26/21 11:24 [facility] Document 08/09/21 10:16 [place] [id number] 08/09/21 10:24 [place] 07/26/21 08/09/21 11:10 10:16 - Today's Visit Information Type of service Follow-up Visit Follow-up Visit (Physician/AEROTRIANGULATION SPECIALIST (Physician/AEROTRIANGULATION SPECIALIST ) ) Arrival Mode Ambulatory, Walker Walker Transfer Assistance None Accompanied by self Patient Identification Verified (Name & Yes Yes ) Patient Requires Transmission-Based No Precautions Vital Signs Temperature (97.8 F-99.1 F) 97.2 F L 98 F Temperature Source Temporal Temporal Pulse Rate (60-100) 81 90 Pulse Location Monitor Monitor Respiratory Rate (12-18) 16 18 Respiratory rate source Observation Observation Oxygen Delivery Method Room Air Room Air Blood Pressure (90/60-120/80) 160/101 H 154/99 H Blood Pressure Mean (mm Hg) 120 117 Source Monitor Monitor Position Sitting Sitting Blood Pressure Location Left Forearm Left Forearm Comment COUNSELED ON BP History Since Last Visit- (Skip if this is Patient's initial visit) Have you changed medications since your No last visit? Any new allergies or adverse reactions No Had a fall/change in ADL's that may No increase risk of falls Signs or symptoms of abuse and/or No neglect since last visit Have you been in the hospital since your No last visit? Has dressing in place as prescribed Yes Yes Has compression in place as prescribed N/A Yes Has offloadiing in place as prescribed N/A Yes Experienced any changes in pain level or No Yes management Left Footwear Regular Shoe Regular Shoe Right Footwear Regular Shoe Regular Shoe Pain Scale: 0-10 Numeric Is Patient Pain Free? No Yes L FOOT -Description Throbbing, Burning,Aching -Intensity 5 -Pain Aggravating Factors Sitting -Alleviating Factors/Interventions Turning/ Repositioning, Distraction, Will continue to monitor, Emotional Support Trung Nurse 1 - General Ulcer Measurement Start: 07/26/21 11:08 Freq: Status: Active Protocol: Activity Type Activity Date Activity User E-Sign Co-Sign Detail Recorded Client Recorded Date Recorded By Document 07/26/21 11:10 [facility] [id number] 07/26/21 11:24 [facility] Document 08/09/21 10:16 [place] [id number] 08/09/21 10:24 [place] 07/26/21 08/09/21 11:10 10:16 Wound Center Nurse 1 #1 Lower Back -Combined with other wound No -Current Size (cm) - Length 1.3 2.5 -Current Size (cm) - Width 1.7 2.0 -Current Size (cm) - Depth 0.3 0.3 -Total Square Cm 2.21 5.00 -Photo Taken No -Epithelialization None Present -Tunneling No -Undermining/Tunneling No -Circular Undermining No -Exudate Amt Large -Exudate Type Serosanguineous -Wound Margin Distinct, Thickened & Outline Rolled Under Attached -Granulation Amt Small (1-33%) Large (67-100%) -Granulation Quality Red Pale,[place] -Slough/Fibrin Yes Yes -Necrosis Amt Large (67-100%) None Present (0 %) -Necrotic Tissue Type Adherent Slough Adherent Slough -Texture (Joseline-wound Skin Appearance) Assessed, Assessed Scarring -Moisture (Joseline-wound Skin Appearance) Assessed Assessed -Color (Joseline-wound Skin Appearance) Assessed Assessed -Temperature (Joseline-wound Skin No Abnormality No Abnormality Appearance) (Pt Warm) (Pt Warm) -Tenderness on Palpation (Joseline-wound Yes No Skin Appearance) -Ulcer Cleansing Soap and Water Rinsed/ Irrigated with Saline -Foul Odor after Cleansing No No -Anesthetic Used 5% Lidocaine 4% Lidocaine Gel Solution Lower Limb Edema Present NA WC - Nurse 2 - General Ulcer CM Notes Start: 07/26/21 11:08 Freq: Status: Active Protocol: Activity Type Activity Date Activity User E-Sign Co-Sign Detail Recorded Client Recorded Date Recorded By Document 07/26/21 16:15 PL [id number] 07/27/21 16:16 PL Document 08/09/21 13:33 PL [id number] 08/09/21 13:34 PL 07/26/21 08/09/21 16:15 13:33 Wound Center Nurse 2 #1 Lower Back -Time 12:15 10:29 -Correct Patient Yes Yes -Correct Side, Site, Position Yes Yes -Correct Procedure Yes Yes -Procedure Performed Yes Yes -Type of Procedure Debridement Debridement -Clinical Debridement Subcutaneous Subcutaneous -Tissue Removed Subcutaneous Subcutaneous -Post Debridement (cm) - Length 1.3 1.9 -Post Debridement (cm) - Width 1.7 1.9 -Post Debridement (cm) - Depth 0.3 0.2 -Total Square (Post) (cm) 2.21 3.61 -Area of Debridement (cm) - Length 1.3 1.9 -Area of Debridement (cm) - Width 1.7 0.9 -Total Square (Area) (cm) 2.21 1.71 -Tunneling No No -Undermining/Tunneling No No -Circular Undermining No No -Wound/Ulcer Outcome Not Healed Not Healed -Ulcer Cleansing Rinsed/ Rinsed/ Irrigated with Irrigated with Saline Saline -Foul Odor after Cleansing No No -Bioengineered Tissue No No -Bleeding Controlled with Pressure -Treatment Response Procedure Tolerated Well -Debridement - Subq, 1st 20sq cm Yes Yes Pain Scale: 0-10 Numeric Is Patient Pain Free? Yes Yes - Nurse 3 - General Ulcer D/C NN Start: 07/26/21 11:08 Freq: Status: Active Protocol: Activity Type Activity Date Activity User E-Sign Co-Sign Detail Recorded Client Recorded Date Recorded By Document 07/26/21 12:36 [place] [id number] 07/26/21 12:37 [place] Document 08/09/21 10:54 [place] [id number] 08/09/21 10:55 [place] Document 08/09/21 10:57 DE [id number] 08/09/21 10:58 [place] 07/26/21 08/09/21 08/09/21 12:36 10:54 10:57 Wound Care Nurse 3 #1 Lower Back -Ulcer Cleansing Rinsed/ Rinsed/ Irrigated with Irrigated with Saline Saline -Foul Odor after Cleansing No -Negative Pressure Wound Therapy N/A -Primary Dressing Applied Aquacel AG 4x4, Aquacel AG 4x4 C Hydrogel ($) Mepilex Border -Other Dressing ABD -Primary Dressing Covered/Secured with Dry Gauze Secured with Tape -Aquacel AG 4x4 1 1 -Mepilex Border 3 Pain Scale: 0-10 Numeric Is Patient Pain Free? Yes Yes Yes WC - Visit Discharge Discharge Condition Stable Stable Ambulatory Status Ambulatory Ambulatory, Walker Transportation Private Auto Private Auto Medication Reconcilliation completed & No Yes provided to patient/care provider Clinical Summary of Care Provided Yes Yes Assessment/Plan Assessment/Plan (1) Pressure ulcer of unspecified part of back, stage 3: CODE(S): L89.103 - Pressure ulcer of unspecified part of back, stage 3 (2) Obesity: CODE(S): E66.9 - Obesity, unspecified QUALIFIERS: Obesity type: unspecified obesity type Obesity classification: unspecified obesity classification Serious obesity comorbidity presence: unspecified whether serious comorbidity present Qualified Code(s): E66.9 - Obesity, unspecified (3) Low back pain: CODE(S): M54.50 - Low back pain, unspecified QUALIFIERS: Chronicity: acute Back pain laterality: midline Sciatica presence: unspecified whether sciatica present Qualified Code(s): M54.50 - Low back pain, unspecified PLAN: Debridement performed today in clinic as annotated above. Aquacel Ag applied. There is an adherent white layer at the base of the wound, which I suspect is fibrous exudate. However, given the patient's fluctuance with wound healing, a fungal culture will be ordered. At home wound-care instructions: Change Aquacel Ag dressing once daily or more frequently as needed due to contamination. Wash wounds daily with antibacterial soap and water, rinse with saline, and dry thoroughly before each dressing change. Avoid use of wound VAC adhesive dressings. Instead, use silicone tape to secure ABD pad. Compression: N/A Off-loading: The patient was instructed to avoid pressure and friction on the affected areas. Reposition every 2 hours at minimum. Frequent ambulation is encouraged. Diet: Patient encouraged to increase protein intake while taking caution to avoid high carbohydrate and/or sugar intake. Also encouraged to take a multivitamin. Labs/cultures/imaging: Finish course of Levaquin as prescribed for MRSA. Fungal culture ordered today. Follow-up: Return to clinic in 2 weeks for re-evaluation. Return sooner or report to the emergency room should symptoms worsen, or new symptoms arise. Note: [email or web address] speech recognition behavioral specialist software was used to create portions of this document. Sound-alike and misspelled words, as well as other behavioral specialist errors may be contained in the documentation.
== END 2021-08-12 23:59 ==
LOC: WC 10:00
PROVIDERS: Visit Provider Nurse Practitioner Family
DX: L89.103 Pressure ulcer of unspecified part of back, stage 3 (principal); M54.50 Low back pain, unspecified; E66.9 Obesity, unspecified; L29.9 Pruritus, unspecified
CPT/HCPCS: 11042; 87070; 87075; 87077; 87101; 87186; 87205

== ENCOUNTER 2021-08-16 10:57 | Outpatient (CLI) | payer MEDICAID, SELFPAY ==
--- NOTE | 2021-08-16 11:04 | ART_ITS ---
Reason For Study: PVD Procedure A bilateral lower extremity continuous wave Doppler with analog waveform analysis and ankle brachial indexes. Left Segmental Pressures Left brachial= 139mmHg. Left posterior tibial artery = 190mmHg. Left dorsalis pedis artery = 160mmHg. The left dorsalis pedis waveforms are triphasic. The left posterior tibial artery waveforms are triphasic. Right Segmental Pressures Right brachial= 144mmHg. Right posterior tibial artery = 189mmHg. Right dorsalis pedis artery = 192mmHg. The right dorsalis pedis waveforms are triphasic. The right posterior tibial artery waveforms are triphasic. Indices The right ankle brachial index by the dorsalis pedis is 1.33. The right ankle brachial index by the posterior tibial artery is 1.31. The left ankle brachial index by the dorsalis pedis is 1.11. The left ankle brachial index by the posterior tibial artery is 1.32. VL/Ankle Brachial Index Interpretation Summary Normal right lower extremity PT and DP ankle-brachial index of 1.31 and 1.33 re spectively with normal triphasic Doppler waveforms Right digital PPG quite depressed possible distal small vessel disease or tempe rature effect. Clinical correlation would be appropriate. Left PT and DP ankle-brachial index are normal at 1.32 and 1.11 respectively wi th normal triphasic Doppler waveforms Again the left digital PPG's slightly depressed possibly consistent with temper ature effect or distal small vessel disease. Ordering Physician: Jamison Manning Performed By: Travon Cabrera RVT
== END 2021-08-16 23:59 | disposition home or self-care (01) ==
LOC: CVS 11:01
PROVIDERS: PCP Internal Medicine; Referring Provider Psychiatry & Neurology Neurology; Visit Provider Psychiatry & Neurology Neurology
DX: I73.9 Peripheral vascular disease, unspecified (principal)
CPT/HCPCS: 11042; 93922

== ENCOUNTER 2021-09-06 09:45 | Outpatient (RCR) | payer MEDICAID, SELFPAY ==
[2021-08-13 00:33] VITALS: BP 154/99; PULSE 90; RESP 18; TEMP 36.6; O2SAT 2
[2021-08-23 11:35] VITALS: BP 148/77; PULSE 103; RESP 18; TEMP 36.1
--- NOTE | 2021-08-23 13:22 | PN.PCM_ITS ---
History of Present Illness Date of Service: 08/23/21 Chief Complaint: Lower back ulcer History of Wound: Paige is a very pleasant 56-year old female who presented to the wound healing center on 05/03/2021 for transition of care for a pressure ulcer of her lower back. She has a history of neuropathy, and COVID-19 infection which required intubation and ECMO. It was during the time that she was receiving ECMO that she developed her lower back ulcer. She is not a smoker, she is nondiabetic, and she does not take anticoagulation. Since her COVID-19 infection, she requires daily use of oxygen at 2 L/min. She recently completed a course of steroids for bronchitis. She was previously being treated for her pressure ulcer in [place], [place]. Throughout her course, her wound care has consisted of a surgical debridement, weekly excisional debridements, the use of the wound VAC, and Aquacel Ag dressings. She recently relocated to [place]. Since relocating, she has been using Aquacel Ag dressing to the low back ulcer. Her son performs her dressing changes for her. She sleeps on her stomach at night. In early May, she developed an increase in pain in her low back ulcer. On 05/17/2021, a wound culture was collected which revealed 1+ MRSA and 1+ Proteus mirabilis, positive anaerobic cocci. She was started on cefdinir 300 mg every 12 hours x10 days and doxycycline 100 mg twice daily x10 days, and completed these courses of antibiotics without complications. In recent weeks, her wound has increased in size. She also notes an increase in pain from her low back ulcer, and notes seeing dark yellow drainage on one of her dressings in the past week. She denies any fevers or chills. She also ran out of wound care supplies, and has been using a wound VAC adhesive dressing to secure her wound dressings. This has resulted in a rash of her low back, as well as pruritus. Progress of Wound: Her wound is stable in size and appearance today. The patient denies fever, chills, general malaise, or poor appetite. The patient has not had increased redness, swelling, or purulent/malodorous drainage from affected area. She does note a large amount of drainage from the wound. Her wound site is tender. Fungal cultures still pending. (Collected 08/09/2021) Bacterial culture from 08/09/2021 was negative. She has an upcoming lumbar MRI ordered by neurology. Objective Data Objective Data Vital Signs: Vital Signs Temp Pulse Resp BP Pulse Ox 97 F L 103 H 18 148/77 H 2 08/23/21 11:35 08/23/21 11:35 08/23/21 11:35 08/23/21 11:35 08/13/21 00:33 Oxygen Delivery Method Room Air Charges/Coding Procedures Integumentary 111xxx-113xx: 64858 [place] subq tissue 20 sq cm/< Physical Exam Const alert, no apparent distress and healthy appearing General Appearance: cooperative, comfortable and well kempt Nutritional Appearance: obese HEENT Head and Scalp: normocephalic and atraumatic Eyes EOMs intact bilaterally Neck supple and no JVD Resp normal respiratory effort, normal air movement and no use of accessory muscles Effort and Inspection: able to speak in complete sentences Skin Wounds: wounds noted No malodorous Wound Narrative: Midline lower back ulcer with subcutaneous layer exposed, unchanged in size from last visit. No tunneling noted today. No undermining or probing to bone. There is a small amount of devitalized tissue. Wound bed is slightly white, suspected to be due to fibrous exudate. No periulcer erythema, warmth or tenderness. No purulent or malodorous drainage. Small area of excoriation laterally (left) of wound. No opening. Neuro oriented x3, moves all extremities and no focal motor deficits Psych mental status grossly normal, cooperative and affect normal Insight: insight good Judgement: judgement good Debridement Note Debridement Note Wound debrided: Low back ulcer Laterality: Not Applicable Type of Debridement: Excisional debridement Anesthesia Used: 4% Lidocaine Solution Depth: in the subcutaneous layer Percentage of wound debrided: 100 Instrument Used: 5mm curette Tissue Removed: Slough and devitalized tissue Severity: Fat Layer Exposed Amount of bleeding with debridement: Mild Bleeding Controlled with: Pressure Patient tolerated procedure: Patient tolerated procedure well Post-Debridement Measurements and Additional Note: Post-Debridement Measurements/Treatment WC - Nurse 1 - General Ulcer Assessment Start: 08/23/21 11:35 Freq: Status: Active Protocol: CINTIA Activity Type Activity Date Activity User E-Sign Co-Sign Detail Recorded Client Recorded Date Recorded By Document 08/23/21 11:35 [place] [id number] 08/23/21 11:50 [place] 08/23/21 11:35 - Today's Visit Information Type of service Follow-up Visit (Physician/SUPERINTENDENT [employer] ) Arrival Mode Ambulatory, Walker Accompanied by Son Patient Identification Verified (Name & Yes ) Vital Signs Temperature (97.8 F-99.1 F) 97 F L Temperature Source Temporal Pulse Rate (60-100) 103 H Pulse Location Monitor Respiratory Rate (12-18) 18 Respiratory rate source Observation Oxygen Delivery Method Room Air Blood Pressure (90/60-120/80) 148/77 H Blood Pressure Mean (mm Hg) 100 History Since Last Visit- (Skip if this is Patient's initial visit) Has dressing in place as prescribed Yes Has compression in place as prescribed Yes Has offloadiing in place as prescribed Yes Experienced any changes in pain level or Yes management Left Footwear Regular Shoe Right Footwear Regular Shoe Pain Scale: 0-10 Numeric Is Patient Pain Free? Yes - Nurse 1 - General Ulcer Measurement Start: 08/23/21 11:35 Freq: Status: Active Protocol: Activity Type Activity Date Activity User E-Sign Co-Sign Detail Recorded Client Recorded Date Recorded By Document 08/23/21 11:35 [place] [id number] 08/23/21 11:50 [place] 08/23/21 11:35 Wound Center Nurse 1 #1 Lower Back -Current Size (cm) - Length 2.5 -Current Size (cm) - Width 2.6 -Current Size (cm) - Depth 0.6 -Total Square Cm 6.50 -Exudate Amt Small -Exudate Type Serosanguineous -Wound Margin Thickened & Rolled Under -Granulation Amt Large (67-100%) -Granulation Quality Pale,[place] -Necrosis Amt Small (1-33%) -Necrotic Tissue Type Adherent Slough -Texture (Joseline-wound Skin Appearance) Assessed -Moisture (Joseline-wound Skin Appearance) Assessed -Color (Joseline-wound Skin Appearance) Assessed -Temperature (Joseline-wound Skin No Abnormality Appearance) (Pt Warm) -Tenderness on Palpation (Joseline-wound No Skin Appearance) -Ulcer Cleansing Rinsed/ Irrigated with Saline -Foul Odor after Cleansing No -Anesthetic Used 4% Lidocaine Solution Lower Limb Edema Present NA Assessment/Plan Assessment/Plan (1) Pressure ulcer of unspecified part of back, stage 3: CODE(S): L89.103 - Pressure ulcer of unspecified part of back, stage 3 (2) Obesity: CODE(S): E66.9 - Obesity, unspecified QUALIFIERS: Obesity type: unspecified obesity type Obesity classification: unspecified obesity classification Serious obesity comorbidity presence: unspecified whether serious comorbidity present Qualified Code(s): E66.9 - Obesity, unspecified (3) Low back pain: CODE(S): M54.50 - Low back pain, unspecified QUALIFIERS: Chronicity: acute Back pain laterality: midline S ciatica presence: unspecified whether sciatica present Qualified Code(s): M54.50 - Low back pain, unspecified PLAN: Debridement performed today in clinic as annotated above. Promogran applied. At home wound-care instructions: Change Promogran dressing once daily. Cover with supersorb. Wash wounds daily with antibacterial soap and water, rinse with saline, and dry thoroughly before each dressing change. Avoid use of wound VAC adhesive dressings, as this previously irritated the skin. Off-loading: The patient was instructed to avoid pressure and friction on the affected areas. Reposition every hour at minimum. Frequent ambulation is encouraged. Diet: Patient encouraged to increase protein intake while taking caution to avoid high carbohydrate and/or sugar intake. Also encouraged to take a multivitamin. Labs/cultures/imaging: Levaquin completed for MRSA. Fungal culture still pending. Follow-up: Return to clinic in 2 weeks for re-evaluation. Return sooner or report to the emergency room should symptoms worsen, or new symptoms arise. Note: [employer] speech recognition property disposal officer software was used to create portions of this document. Sound-alike and misspelled words, as well as other property disposal officer errors may be contained in the documentation.
[2021-09-06 09:58] VITALS: BP 160/91; PULSE 92; TEMP 36.1
--- NOTE | 2021-09-06 15:23 | PN.PCM_ITS ---
History of Present Illness Date of Service: 09/06/21 Chief Complaint: Lower back ulcer History of Wound: Paige is a very pleasant 56-year old female who presented to the wound healing center on 05/03/2021 for transition of care for a pressure ulcer of her lower back. She has a history of neuropathy, and COVID-19 infection which required intubation and ECMO. It was during the time that she was receiving ECMO that she developed her lower back ulcer. She is not a smoker, she is nondiabetic, and she does not take anticoagulation. Since her COVID-19 infection, she requires daily use of oxygen at 2 L/min. She recently completed a course of steroids for bronchitis. She was previously being treated for her pressure ulcer in [place], [place]. Throughout her course, her wound care has consisted of a surgical debridement, weekly excisional debridements, the use of the wound VAC, and Aquacel Ag dressings. She recently relocated to [place]. Since relocating, she has been using Aquacel Ag dressing to the low back ulcer. Her son performs her dressing changes for her. She sleeps on her stomach at night. In early May, she developed an increase in pain in her low back ulcer. On 05/17/2021, a wound culture was collected which revealed 1+ MRSA and 1+ Proteus mirabilis, positive anaerobic cocci. She was started on cefdinir 300 mg every 12 hours x10 days and doxycycline 100 mg twice daily x10 days, and completed these courses of antibiotics without complications. In recent weeks, her wound has increased in size. She also notes an increase in pain from her low back ulcer, and notes seeing dark yellow drainage on one of her dressings in the past week. She denies any fevers or chills. She also ran out of wound care supplies, and has been using a wound VAC adhesive dressing to secure her wound dressings. This has resulted in a rash of her low back, as well as pruritus. Progress of Wound: Her wound is stable in size and appearance today. The patient denies fever, chills, general malaise, or poor appetite. The patient has not had increased redness, swelling, or purulent/malodorous drainage from affected area. No concerning drainage from wound. Her wound site is nontender today. Fungal cultures still pending. (Collected 08/09/2021) Bacterial culture from 08/09/2021 was negative. She has an upcoming lumbar MRI ordered by neurology. Objective Data Objective Data Vital Signs: Vital Signs Temp Pulse Resp BP Pulse Ox 96.9 F L 92 18 160/91 H 2 09/06/21 09:58 09/06/21 09:58 08/23/21 11:35 09/06/21 09:58 08/13/21 00:33 Oxygen Delivery Method Room Air Charges/Coding Procedures Integumentary [id number]: 10922 [place] subq tissue 20 sq cm/< Physical Exam Const alert, no apparent distress and healthy appearing General Appearance: cooperative, comfortable and well kempt Nutritional Appearance: obese HEENT Head and Scalp: normocephalic and atraumatic Eyes EOMs intact bilaterally Neck supple and no JVD Resp normal respiratory effort, normal air movement and no use of accessory muscles Effort and Inspection: able to speak in complete sentences Skin Wounds: wounds noted No malodorous Wound Narrative: Midline lower back ulcer with subcutaneous layer exposed. No tunneling noted today. No undermining or probing to bone. There is a small amount of devitalized tissue. Wound bed is slightly white, suspected to be due to fibrous exudate. No periulcer erythema, warmth or tenderness. No purulent or malodorous drainage. Neuro oriented x3, moves all extremities and no focal motor deficits Psych mental status grossly normal, cooperative and affect normal Insight: insight good Judgement: judgement good Debridement Note Debridement Note Wound debrided: Low back ulcer Laterality: Not Applicable Type of Debridement: Excisional debridement Anesthesia Used: 4% Lidocaine Solution Depth: in the subcutaneous layer Percentage of wound debrided: 100 Instrument Used: 3mm curette Tissue Removed: Slough and devitalized tissue Severity: Fat Layer Exposed Amount of bleeding with debridement: Mild Bleeding Controlled with: Pressure Patient tolerated procedure: Patient tolerated procedure well Post-Debridement Measurements and Additional Note: Post-Debridement Measurements/Treatment WC - Nurse 1 - General Ulcer Assessment Start: 08/23/21 11:35 Freq: Status: Active Protocol: CINTIA Activity Type Activity Date Activity User E-Sign Co-Sign Detail Recorded Client Recorded Date Recorded By Document 08/23/21 11:35 MT [id number] 08/23/21 11:50 MT Document 09/06/21 09:58 AK [id number] 09/06/21 10:03 NC 08/23/21 09/06/21 11:35 09:58 - Today's Visit Information Type of service Follow-up Visit Follow-up Visit (Physician/NEWS COMMENTATOR (Physician/NEWS COMMENTATOR ) ) Arrival Mode Ambulatory, Ambulatory, Walker Walker Accompanied by Son Patient Identification Verified (Name & Yes Yes ) Patient Requires Transmission-Based No Precautions Vital Signs Temperature (97.8 F-99.1 F) 97 F L 96.9 F L Temperature Source Temporal Temporal Pulse Rate (60-100) 103 H 92 Pulse Location Monitor Monitor Respiratory Rate (12-18) 18 Respiratory rate source Observation Oxygen Delivery Method Room Air Blood Pressure (90/60-120/80) 148/77 H 160/91 H Blood Pressure Mean (mm Hg) 100 114 Source Monitor History Since Last Visit- (Skip if this is Patient's initial visit) Have you changed medications since your No last visit? Any new allergies or adverse reactions No Had a fall/change in ADL's that may No increase risk of falls Signs or symptoms of abuse and/or No neglect since last visit Have you been in the hospital since your No last visit? Has dressing in place as prescribed Yes Yes Has compression in place as prescribed Yes No Has offloadiing in place as prescribed Yes N/A Experienced any changes in pain level or Yes No management Left Footwear Regular Shoe Regular Shoe Right Footwear Regular Shoe Regular Shoe Pain Scale: 0-10 Numeric Is Patient Pain Free? Yes No - Nurse 1 - General Ulcer Measurement Start: 08/23/21 11:35 Freq: Status: Active Protocol: Activity Type Activity Date Activity User E-Sign Co-Sign Detail Recorded Client Recorded Date Recorded By Document 08/23/21 11:35 GA [id number] 08/23/21 11:50 GA Document 09/06/21 09:58 NC [id number] 09/06/21 10:03 NC 08/23/21 09/06/21 11:35 09:58 Wound Center Nurse 1 #1 Lower Back -Combined with other wound No -Current Size (cm) - Length 2.5 1.5 -Current Size (cm) - Width 2.6 2 -Current Size (cm) - Depth 0.6 0.4 -Total Square Cm 6.50 3.0 -Photo Taken No -Tunneling No -Undermining/Tunneling No -Circular Undermining No -Change in Wound Grade/Stage No -Exudate Amt Small Medium -Exudate Type Serosanguineous Serosanguineous -Wound Margin Thickened & Distinct, Rolled Under Outline Attached -Granulation Amt Large (67-100%) Small (1-33%) -Granulation Quality Pale,Watchtower Watchtower -Slough/Fibrin Yes -Necrosis Amt Small (1-33%) Small (1-33%) -Necrotic Tissue Type Adherent Slough Adherent Slough -Structure Exposed N/A -Texture (Joseline-wound Skin Appearance) Assessed Assessed, Scarring -Moisture (Joseline-wound Skin Appearance) Assessed No Abnormality, Assessed -Color (Joseline-wound Skin Appearance) Assessed No Abnormality, Assessed -Temperature (Joseline-wound Skin No Abnormality No Abnormality Appearance) (Pt Warm) (Pt Warm) -Tenderness on Palpation (Joseline-wound No Yes Skin Appearance) -Ulcer Cleansing Rinsed/ Rinsed/ Irrigated with Irrigated with Saline Saline -Foul Odor after Cleansing No No -Anesthetic Used 4% Lidocaine 4% Lidocaine Solution Solution Lower Limb Edema Present NA WC - Nurse 2 - General Ulcer CM Notes Start: 08/23/21 11:35 Freq: Status: Active Protocol: Activity Type Activity Date Activity User E-Sign Co-Sign Detail Recorded Client Recorded Date Recorded By Document 08/23/21 13:55 PL [id number] 08/23/21 13:56 PL Document 09/06/21 13:31 PL [id number] 09/06/21 13:32 PL 08/23/21 09/06/21 13:55 13:31 Wound Center Nurse 2 #1 Lower Back -Time 12:16 10:29 -Correct Patient Yes Yes -Correct Side, Site, Position Yes Yes -Correct Procedure Yes Yes -Procedure Performed Yes Yes -Type of Procedure Debridement Debridement -Clinical Debridement Subcutaneous Subcutaneous -Tissue Removed Subcutaneous Subcutaneous -Post Debridement (cm) - Length 1.9 1.8 -Post Debridement (cm) - Width 1.9 1.8 -Post Debridement (cm) - Depth 0.2 0.2 -Total Square (Post) (cm) 3.61 3.24 -Area of Debridement (cm) - Length 1.9 1.8 -Area of Debridement (cm) - Width 1.9 1.8 -Total Square (Area) (cm) 3.61 3.24 -Tunneling No No -Undermining/Tunneling No No -Circular Undermining No No -Wound/Ulcer Outcome Not Healed Not Healed -Ulcer Cleansing Rinsed/ Rinsed/ Irrigated with Irrigated with Saline Saline -Foul Odor after Cleansing No No -Bioengineered Tissue No No -Bleeding Controlled with Pressure Pressure -Treatment Response Procedure Procedure Tolerated Well Tolerated Well -Debridement - Subq, 1st 20sq cm Yes Yes Pain Scale: 0-10 Numeric Is Patient Pain Free? Yes Yes - Nurse 3 - General Ulcer D/C NN Start: 08/23/21 11:35 Freq: Status: Active Protocol: Activity Type Activity Date Activity User E-Sign Co-Sign Detail Recorded Client Recorded Date Recorded By Document 09/06/21 10:39 RB [id number] 09/06/21 10:41 RB 09/06/21 10:39 Wound Care Nurse 3 #1 Lower Back -Ulcer Cleansing Rinsed/ Irrigated with Saline -Primary Dressing Applied Promogran -Other Dressing abd -Primary Dressing Covered/Secured with Secured with Tape -Promogran 1 Treatment Response Procedure Tolerated Well Pain Scale: 0-10 Numeric Is Patient Pain Free? Yes WC - Visit Discharge Discharge Condition Stable Ambulatory Status Ambulatory Transportation Private Auto Medication Reconcilliation completed & No provided to patient/care provider Clinical Summary of Care Provided Yes Assessment/Plan Assessment/Plan (1) Pressure ulcer of unspecified part of back, stage 3: CODE(S): L89.103 - Pressure ulcer of unspecified part of back, stage 3 (2) Obesity: CODE(S): E66.9 - Obesity, unspecified QUALIFIERS: Obesity type: unspecified obesity type Obesity clas sification: unspecified obesity classification Serious obesity comorbidity presence: unspecified whether serious comorbidity present Qualified Code(s): E66.9 - Obesity, unspecified (3) Low back pain: CODE(S): M54.50 - Low back pain, unspecified QUALIFIERS: Chronicity: acute Back pain laterality: midline Sciatica presence: unspecified whether sciatica present Qualified Code(s): M54.50 - Low back pain, unspecified PLAN: Debridement performed today in clinic as annotated above. Promogran applied. At home wound-care instructions: Change Promogran dressing once daily. Cover with supersorb. Wash wounds daily with antibacterial soap and water, rinse with saline, and dry thoroughly before each dressing change. Avoid use of wound VAC adhesive dressings, as this previously irritated the skin. Off-loading: The patient was instructed to avoid pressure and friction on the affected areas. Reposition every hour at minimum. Frequent ambulation is encouraged. Diet: Patient encouraged to increase protein intake while taking caution to avoid high carbohydrate and/or sugar intake. Also encouraged to take a multivitamin. Labs/cultures/imaging: Levaquin completed for MRSA. Fungal culture still pending. Follow-up: Return to clinic in 2 weeks for re-evaluation. Return sooner or report to the emergency room should symptoms worsen, or new symptoms arise. Note: [employer] speech recognition nutrition services manager software was used to create portions of this document. Sound-alike and misspelled words, as well as other nutrition services manager errors may be contained in the documentation.
== END 2021-09-12 23:59 | disposition home or self-care (01) ==
LOC: WC 09:45
PROVIDERS: PCP Internal Medicine; Visit Provider Nurse Practitioner Family
DX: L89.103 Pressure ulcer of unspecified part of back, stage 3 (principal); G62.9 Polyneuropathy, unspecified; M54.50 Low back pain, unspecified; M21.372 Foot drop, left foot; E66.9 Obesity, unspecified; Z86.16 Personal history of COVID-19; Z99.81 Dependence on supplemental oxygen
CPT/HCPCS: 11042

== ENCOUNTER 2021-09-06 10:54 | Outpatient (CLI) | payer MEDICAID, SELFPAY ==
--- NOTE | 2021-09-06 13:29 | NEURO_ITS ---
NCS and/or EMG Patient Report Ordering Doctor: Jamison Manning DATE OF SERVICE: 09/06/21 Indication: Left flail foot (peroneal greater than tibial weakness) following a prolonged ICU stay with COVID in September 2020. Evaluate for a peripheral cause. Findings: Nerve conduction studies were performed in the left lower extremity. Some comparison studies were performed on the right. The left peroneal motor study recording the extensor digitorum brevis showed a markedly reduced amplitude. The patient could not tolerate stimulation around the fibular neck. The left peroneal motor study recording the tibialis anterior showed a markedly reduced amplitude. Again, the patient could not tolerated stimulation around the fibular neck. The left tibial motor study recording the abductor hallucis brevis showed a markedly reduced amplitude, normal distal latency and normal conduction velocity. The left sural sensory response was absent. The left superficial peroneal sensory response was absent. The right peroneal motor study recording the tibialis anterior showed a normal amplitude, normal distal latency and normal conduction velocity. No conduction block or focal slowing was present across the fibular neck. The right and left peroneal motor responses were markedly asymmetric. The right sural sensory response showed a normal amplitude and conduction velocity. The right superficial peroneal sensory response showed a normal amplitude and conduction velocity. Needle EMG was omitted as it would be technically challenging and unlikely to change the below impression. Impression: This is a markedly abnormal study. 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 Alternatively, though less likely, these findings may represent a left lumbosacral plexopathy (preferentially affecting the fibers destined to the sciatic nerve). While there is a significant degree of axonal loss, the nerve appears to be in continuity with the target muscles. Vladislav Vickers D.O. Multi Select Codes Neurology Neurology Interp Codes: 41746-24 [facility]p)
== END 2021-09-06 23:59 | disposition home or self-care (01) ==
PROVIDERS: PCP Internal Medicine; Referring Provider Psychiatry & Neurology Neurology; Visit Provider Psychiatry & Neurology Neurology
DX: G62.9 Polyneuropathy, unspecified (principal); L89.103 Pressure ulcer of unspecified part of back, stage 3; M54.50 Low back pain, unspecified; M21.372 Foot drop, left foot; E66.9 Obesity, unspecified; Z99.81 Dependence on supplemental oxygen; Z86.16 Personal history of COVID-19
CPT/HCPCS: 11042; 95910

== ENCOUNTER 2021-10-11 09:15 | Outpatient (RCR) | payer MEDICAID, SELFPAY ==
[2021-09-13 00:34] VITALS: BP 160/91; PULSE 92; RESP 18; TEMP 36.1; O2SAT 2
[2021-10-11 09:26] VITALS: BP 178/93; PULSE 80; TEMP 36.3
--- NOTE | 2021-10-11 12:43 | PN.PCM_ITS ---
History of Present Illness Date of Service: 10/11/21 Chief Complaint: Lower back ulcer History of Wound: Paige is a very pleasant 56-year old female who presented to the wound healing center on 05/03/2021 for transition of care for a pressure ulcer of her lower back. She has a history of neuropathy, and COVID-19 infection which required intubation and ECMO. It was during the time that she was receiving ECMO that she developed her lower back ulcer. She is not a smoker, she is nondiabetic, and she does not take anticoagulation. Since her COVID-19 infection, she requires daily use of oxygen at 2 L/min. She recently completed a course of steroids for bronchitis. She was previously being treated for her pressure ulcer in [place], [place]. Throughout her course, her wound care has consisted of a surgical debridement, weekly excisional debridements, the use of the wound VAC, and Aquacel Ag dressings. She recently relocated to [place]. Since relocating, she has been using Aquacel Ag dressing to the low back ulcer. Her son performs her dressing changes for her. She sleeps on her stomach at night. In early May, she developed an increase in pain in her low back ulcer. On 05/17/2021, a wound culture was collected which revealed 1+ MRSA and 1+ Proteus mirabilis, positive anaerobic cocci. She was started on cefdinir 300 mg every 12 hours x10 days and doxycycline 100 mg twice daily x10 days, and completed these courses of antibiotics without complications. In recent weeks, her wound has increased in size. She also notes an increase in pain from her low back ulcer, and notes seeing dark yellow drainage on one of her dressings in the past week. She denies any fevers or chills. She also ran out of wound care supplies, and has been using a wound VAC adhesive dressing to secure her wound dressings. This has resulted in a rash of her low back, as well as pruritus. Progress of Wound: The patient's wound is improved in size and appearance today. She has been compliant with the use of Promogran dressings. The patient denies fever, chills, general malaise, or poor appetite. The patient has not had increased redness, swelling, or purulent/malodorous drainage from affected area. Objective Data Objective Data Vital Signs: Vital Signs Temp Pulse Resp BP Pulse Ox 97.4 F L 80 18 178/93 H 2 10/11/21 09:26 10/11/21 09:26 09/13/21 00:34 10/11/21 09:26 09/13/21 00:34 Charges/Coding Procedures Integumentary 111xxx-113xx: 28382 [place] subq tissue 20 sq cm/< Physical Exam Const alert, no apparent distress and healthy appearing General Appearance: cooperative, comfortable and well kempt Nutritional Appearance: obese HEENT Head and Scalp: normocephalic and atraumatic Resp normal respiratory effort, normal air movement and no use of accessory muscles Effort and Inspection: able to speak in complete sentences Skin Wounds: wounds noted No malodorous Wound Narrative: Midline lower back ulcer with subcutaneous layer exposed. No tunneling noted today. No undermining or probing to bone. There is a small amount of devitalized tissue. No periulcer erythema, warmth or tenderness. No purulent or malodorous drainage. Neuro oriented x3, moves all extremities and no focal motor deficits Psych mental status grossly normal, cooperative and affect normal Insight: insight good Judgement: judgement good Debridement Note Debridement Note Wound debrided: Low back ulcer Laterality: Not Applicable Type of Debridement: Excisional debridement Anesthesia Used: 5% Lidocaine Gel Depth: in the subcutaneous layer Percentage of wound debrided: 100 Instrument Used: 3mm curette Tissue Removed: Slough and devitalized tissue Severity: Fat Layer Exposed Amount of bleeding with debridement: Mild Bleeding Controlled with: Compression and gauze Patient tolerated procedure: Patient tolerated procedure well Post-Debridement Measurements and Additional Note: Post-Debridement Measurements/Treatment - Nurse 1 - General Ulcer Assessment Start: 10/11/21 09:24 Freq: Status: Active Protocol: CINTIA Activity Type Activity Date Activity User E-Sign Co-Sign Detail Recorded Client Recorded Date Recorded By Document 10/11/21 09:26 KR [id number] 10/11/21 09:28 GIOVANNA 10/11/21 09:26 - Today's Visit Information Type of service Follow-up Visit (Physician/DAIRY CHEMIST ) Arrival Mode Ambulatory Accompanied by son Patient Identification Verified (Name & Yes ) Vital Signs Temperature (97.8 F-99.1 F) 97.4 F L Temperature Source Temporal Pulse Rate (60-100) 80 Pulse Location Monitor Blood Pressure (90/60-120/80) 178/93 H Blood Pressure Mean (mm Hg) 121 Source Monitor Position Sitting Blood Pressure Location Right Arm History Since Last Visit- (Skip if this is Patient's initial visit) Have you changed medications since your No last visit? Any new allergies or adverse reactions No Had a fall/change in ADL's that may No increase risk of falls Signs or symptoms of abuse and/or No neglect since last visit Have you been in the hospital since your No last visit? Has dressing in place as prescribed Yes Has compression in place as prescribed N/A Has offloadiing in place as prescribed N/A Experienced any changes in pain level or No management Left Footwear Regular Shoe Right Footwear Regular Shoe Pain Scale: 0-10 Numeric Is Patient Pain Free? Yes WC - Nurse 1 - General Ulcer Measurement Start: 10/11/21 09:24 Freq: Status: Active Protocol: Activity Type Activity Date Activity User E-Sign Co-Sign Detail Recorded Client Recorded Date Recorded By Document 10/11/21 09:26 [id number] 10/11/21 09:28 KR 10/11/21 09:26 Wound Center Nurse 1 #1 Lower Back -Current Size (cm) - Length 0.9 -Current Size (cm) - Width 1.5 -Current Size (cm) - Depth 0.2 -Total Square Cm 1.35 -Exudate Amt Small -Exudate Type Serosanguineous -Wound Margin Distinct, Outline Attached -Granulation Amt Small (1-33%) -Granulation Quality [place] -Necrosis Amt None Present (0 %) -Texture (Joseline-wound Skin Appearance) Assessed, Scarring -Moisture (Joseline-wound Skin Appearance) No Abnormality, Assessed -Color (Joseline-wound Skin Appearance) No Abnormality, Assessed -Temperature (Joseline-wound Skin No Abnormality Appearance) (Pt Warm) -Tenderness on Palpation (Joseline-wound No Skin Appearance) -Ulcer Cleansing Rinsed/ Irrigated with Saline -Foul Odor after Cleansing No -Anesthetic Used 5% Lidocaine Gel WC - Nurse 2 - General Ulcer CM Notes Start: 10/11/21 09:24 Freq: Status: Active Protocol: Activity Type Activity Date Activity User E-Sign Co-Sign Detail Recorded Client Recorded Date Recorded By Document 10/11/21 12:22 PL [id number] 10/11/21 12:23 PL 10/11/21 12:22 Wound Center Nurse 2 -Time 10:16 -Correct Patient Yes -Correct Side, Site, Position Yes -Correct Procedure Yes -Procedure Performed Yes -Type of Procedure Debridement -Clinical Debridement Subcutaneous -Tissue Removed Subcutaneous -Post Debridement (cm) - Length 1.1 -Post Debridement (cm) - Width 1.5 -Post Debridement (cm) - Depth 0.2 -Total Square (Post) (cm) 1.65 -Area of Debridement (cm) - Length 1.1 -Area of Debridement (cm) - Width 1.5 -Total Square (Area) (cm) 1.65 -Tunneling No -Undermining/Tunneling No -Circular Undermining No -Wound/Ulcer Outcome Not Healed -Ulcer Cleansing Rinsed/ Irrigated with Saline -Foul Odor after Cleansing No -Bioengineered Tissue No -Bleeding Controlled with Pressure -Treatment Response Procedure Tolerated Well -Debridement - Subq, 1st 20sq cm Yes Pain Scale: 0-10 Numeric Is Patient Pain Free? Yes Assessment/Plan Assessment/Plan (1) Pressure ulcer of unspecified part of back, stage 3: CODE(S): L89.103 - Pressure ulcer of unspecified part of back, stage 3 (2) Obesity: CODE(S): E66.9 - Obesity, unspecified QUALIFIERS: Obesity type: unspecified obesity type Obesity classification: unspecified obesity classification Serious obesity comorbidity presence: unspecified whether serious comorbidity present Qualified Code(s): E66.9 - Obesity, unspecified (3) Low back pain: CODE(S): M54.50 - Low back pain, unspecified QUALIFIERS: Chronicity: acute Back pain laterality: midline Sciatica presence: unspecified whether sciatica present Qualified Code(s): M54.50 - Low back pain, unspecified PLAN: Debridement performed today in clinic as annotated above. Promogran applied. At home wound-care instructions: Change Promogran dressing once daily. Cover with supersorb. Wash wounds daily with antibacterial soap and water, rinse with saline, and dry thoroughly before each dressing change. Use silicone tape to avoid irritation. Avoid use of wound VAC adhesive dressings, as this previously irritated the skin. Off-loading: The patient was instructed to avoid pressure and friction on the affected areas. Reposition every hour at minimum. Frequent ambulation is encouraged. Diet: Patient encouraged to increase protein intake while taking caution to avoid high carbohydrate and/or sugar intake. Also encouraged to take a multivitamin. Labs/cultures/imaging: Levaquin completed for MRSA. Fungal culture was negative. Follow-up: Patient will be unable to follow-up for several weeks due to a trip to [place]. She will schedule follow-up upon her return. She will call sooner with any questions or concerns regarding her wound. Note: [employer] speech recognition online community manager software was used to create portions of this document. Sound-alike and misspelled words, as well as other online community manager errors may be contained in the documentation.
== END 2021-10-12 23:59 | disposition home or self-care (01) ==
LOC: WC 09:15
PROVIDERS: PCP Internal Medicine; Visit Provider Nurse Practitioner Family
DX: L89.103 Pressure ulcer of unspecified part of back, stage 3 (principal); M54.50 Low back pain, unspecified; L29.9 Pruritus, unspecified; E66.9 Obesity, unspecified; Z86.16 Personal history of COVID-19
CPT/HCPCS: 11042

== ENCOUNTER → 2021-10-11 | Outpatient (CLI) | payer MEDICAID, SELFPAY ==
[2021-10-11 09:02] LABS: Hematocrit 46.8 % (37-47); Hemoglobin 15.3 g/dL (12.0-15.0); Mean Corp Hgb Conc 32.7 g/dL (32-36); Mean Corpuscular Volume 91.8 fL (81-99); Mean Platelet Vol. 9.5 fl (6.2-12.0); Platelet Count 211 K/mm3 (150-450); RBC Distribution Width CV 12.8 % (11.6-14.6); RBC Distribution Width SD 43.3 fl (35.1-43.9); White Blood Count 6.1 K/mm3 (4.4-11.0)
[2021-10-11 09:33] LABS: Hemoglobin A1c 5.5 % (3.8-5.6)
[2021-10-11 09:38] LABS: Vitamin B12 425 pg/mL (211-911)
[2021-10-11 09:50] LABS: AST(SGOT) 29 U/L (15-37); Alanine Aminotransfer ALT/SGPT 50 U/L (13-56); Albumin, Serum 3.7 g/dL (3.2-5.0); Alkaline Phosphatase 96 U/L (45-117); Anion Gap 4 (5-15); BUN 13 mg/dL (7-18); BUN/Creat Ratio 16.7 RATIO (10-20); Calcium,Total 9.1 mg/dL (8.5-10.1); Chloride 107 mmol/L (98-107); Cholesterol 187 mg/dL (200); Creatinine, Serum 0.78 mg/dL (0.55-1.02); EST Glomerular Filtration Rate 82 mL/min (>60); Est Glom Filt Rate - Afr Amer 99 mL/min (>60); Free T3 2.5 pg/mL (2.18-3.98); Globulin 3.7 g/dL (2.2-4.2); Glucose 108 mg/dL (74-106); High Density Lipoprotein 52 mg/dL; Potassium 4.1 mmol/L (3.5-5.1); Protein, Total 7.4 g/dL (6.4-8.2); Sodium Level 139 mmol/L (136-145); T4 Free Direct 1.09 ng/dL (0.76-1.46); Thyroid Stim Hormone (TSH) 2.02 uIU/mL (0.358-3.74); Triglycerides 133 mg/dL; Very Low Density Lipoprotein 27 mg/dL (5-40)
--- NOTE | 2021-10-11 12:21 | MRI_ITS ---
STUDY: MRI LUMBAR SPINE WITHOUT CONTRAST REASON FOR EXAM: Female, 56 years old. Low back pain, left leg pain, left foot drop, BACK WOUND SINCE 11/02 HOLE IN SOFT TISSUE, AREA MARKED WITH BEAD TECHNIQUE: Standardized fat and water weighted pulse sequences were obtained in the sagittal and axial planes. COMPARISON: None FINDINGS: No marrow edema or fracture or compression deformity. Linear tract leading down to a 7.83 x 4.72 x 4.03 cm wound in the subcutaneous fat of the lower back at the L2-L3 level with edema and trace fluid phlegmon versus chronic inflammation/seroma. No visualized encapsulated abscess. Normal lumbar lordosis. There is no substantial scoliosis. Normal conus medullaris that terminates at the T12-L1 level. T11-T12: Moderate disc space narrowing at T11-T12 with a midline superior subligamentous disc extrusion, with disc material traveling 7.7 mm above the intervertebral space. The disc extrusion contributes to mild central canal stenosis as well. Slight retrolisthesis of T11 on T12 of no more than 2 mm T12-L1: Normal endplates. Normal disc height, hydration and morphology. Normal bilateral facet joints. Normal central canal and bilateral lateral recesses. Normal bilateral intervertebral neural foramina. L1-2: Mild to moderate disc space narrowing with a minimal disc spur complex. Normal bilateral facet joints. Normal central canal and bilateral lateral recesses. Normal bilateral intervertebral neural foramina. L2-3: Mild disc space narrowing and diffuse disc desiccation without posterior bulging or herniation. Mild anterior endplate spurring. Normal bilateral facet joints. Normal central canal and bilateral lateral recesses. Normal bilateral intervertebral neural foramina. L3-4: Normal endplates. Normal disc height, hydration and morphology. Normal bilateral facet joints. Normal central canal and bilateral lateral recesses. Normal bilateral intervertebral neural foramina. L4-5: Normal endplates. Diffuse disc desiccation. Minimal retrolisthesis of L4 and L5 of no more than 2 mm. Normal disc height and morphology. Mild facet joint hypertrophy and central canal stenosis. Normal bilateral lateral recesses. Normal bilateral intervertebral neural foramina. L5-S1: Normal endplates. Mild to moderate disc space narrowing with a diffuse disc spur complex in addition to a small right paracentral inferior shallow disc extrusion. Normal bilateral facet joints. Normal central canal and bilateral lateral recesses. Normal bilateral intervertebral neural foramina. Normal visualized sacral ala. Normal visualized paraspinous soft tissue structures. MRI/Spine Lumbar (Routine) IMPRESSION: 1. Multilevel degenerative changes, as described above. 2. Moderate disc space narrowing at T11-T12 with a midline superior subligamentous disc extrusion, with disc material traveling 7.7 mm above the intervertebral space. The disc extrusion contributes to mild central canal stenosis as well 3. Mild central canal stenosis at L4-L5. 4. Linear tract leading down to a 7.83 x 4.72 x 4.03 cm wound in the subcutaneous fat of the lower back at the L2-L3 level with edema and trace fluid phlegmon versus chronic inflammation/seroma. No visualized encapsulated abscess. Electronically Signed: Kan Vargas MD at 15:13 EDT ,
[2021-10-14 16:04] LABS: Vitamin D 1,25-Dihydroxy 43.7 pg/mL (19.9-79.3)
== END | disposition home or self-care (01) ==
PROVIDERS: PCP Internal Medicine; Referring Provider Psychiatry & Neurology Neurology; Visit Provider Psychiatry & Neurology Neurology
DX: M54.50 Low back pain, unspecified (principal); M21.372 Foot drop, left foot; M79.605 Pain in left leg; G57.02 Lesion of sciatic nerve, left lower limb
CPT/HCPCS: 36415; 72148; 80053; 80061; 82607; 82652; 82746; 83036; 84425; 84439; 84443; 84481; 85027

== ENCOUNTER 2021-11-22 09:35 | Outpatient (RCR) | payer MEDICAID, SELFPAY ==
[2021-10-13 00:31] VITALS: BP 178/93; PULSE 80; RESP 18; TEMP 36.3; O2SAT 2
[2021-11-22 09:36] VITALS: BP 134/74; PULSE 93; TEMP 36.3
--- NOTE | 2021-11-22 11:09 | HP.PCM_ITS ---
History of Present Illness Date of Service: 11/22/21 Chief Complaint: Lower back ulcer History of Wound: Paige is a very pleasant 56-year old female who presented to the wound healing center on 05/03/2021 for transition of care for a pressure ulcer of her lower back. She has a history of neuropathy, and COVID-19 infection which required intubation and ECMO. It was during the time that she was receiving ECMO that she developed her lower back ulcer. She is not a smoker, she is nondiabetic, and she does not take anticoagulation. Since her COVID-19 infection, she requires daily use of oxygen at 2 L/min. She was previously being treated for her pressure ulcer in [place], [place]. Throughout her course, her wound care has consisted of a surgical debridement, weekly excisional debridements, the use of the wound VAC, and Aquacel Ag dressings. She recently relocated to [place]. Since relocating, she has been using Aquacel Ag dressing to the low back ulcer. Her son performs her dressing changes for her. She sleeps on her stomach at night. In early May, she developed an increase in pain in her low back ulcer. On 05/17/2021, a wound culture was collected which revealed 1+ MRSA and 1+ Proteus mirabilis, positive anaerobic cocci. She was started on cefdinir 300 mg every 12 hours x10 days and doxycycline 100 mg twice daily x10 days, and completed these courses of antibiotics without complications. In the past several weeks, her wound has been improving in size and appearance. She was recently in [place], so was not seen at the wound center during the month of October. The patient denies fever, chills, general malaise, or poor appetite. The patient has not had increased redness, swelling, or purulent/malodorous drainage from affected area. [facility] Medical History (Updated 10/11/21 @ 07:[address] Darwin Gregorio, DO) Acute hypoxemic respiratory failure due to COVID-19 Anemia Arthritis Asthma Back problem History of breast lump History of COVID-19 History of kidney stones History of migraine History of pneumonia Hypertension Low back pain Migraine headache Obesity Pressure ulcer of unspecified part of back, stage 3 Sciatic nerve pain Seasonal allergies Vitamin B12 deficiency Home Medications acetaminophen [Tylenol] 325 mg PO Q6H 05/03/21 [History Last Taken Unknown] mecobalamin (vitamin B12) [B12 Active] 1,000 mcg PO DAILY 05/03/21 [History Last Taken Unknown] STOOL SOFTNER PO 05/21/21 [History Last Taken Unknown] albuterol sulfate 90 mcg/actuation aerosol inhaler 2 puff INHALATION PRN g 05/21/21 [History Last Taken Unknown] ibuprofen 200 mg capsule 600 mg PO Q6H PRN cap 05/21/21 [History Last Taken Unknown] triamcinolone acetonide 1 applic TOPICAL BID 7 Days #30 g 07/05/21 [Rx Last Taken Unknown] amoxicillin 875 mg-potassium clavulanate 125 mg tablet 1 tab PO Q12H 07/23/21 [History Last Taken Unknown] doxycycline hyclate 100 mg capsule 100 mg PO BID 07/23/21 [History Last Taken Unknown] duloxetine 30 mg capsule,delayed release 30 mg PO DAILY #7 cap 10/08/21 [Rx Last Taken Unknown] gabapentin 600 mg tablet 600 mg PO TID #90 tab 10/08/21 [Rx Last Taken Unknown] duloxetine 60 mg capsule,delayed release 60 mg PO DAILY #30 cap 10/31/21 [Rx Last Taken Unknown] Allergy/AdvReac Type Severity Reaction Status Date / Time No Known Allergies Allergy Verified 10/11/21 07:36 Family History Other Alcoholism Anxiety Depression Myocardial infarction Seizures TIA (transient ischemic attack) Surgical History History of tonsillectomy and adenoidectomy Social History Smoking Status: Never smoker Electronic Cigarette Use: not used alcohol intake: never substance use type: marijuana and other details: medical marijuana what type of physical activity do you participate in: walking frequency: daily ROS Constitutional Constitutional: Denies chills, fever(s) or night sweats Eyes Eyes: Denies change in vision or double vision ENT HEENT: Denies lip swelling or tongue swelling Cardiovascular Cardiovascular: Denies chest pain, leg edema or palpitations Respiratory/Chest Respiratory/Chest: Reports portable oxygen @ home and shortness of breath with exertion Gastrointestinal Gastrointestinal: Denies diarrhea, nausea or vomiting Genitourinary Genitourinary: Denies dysuria or hematuria Musculoskeletal Musculoskeletal: Reports difficulty walking, extremity pain, numbness, tingling and other Details: Ambulates with walker Integumentary Integumentary: Reports wounds; Denies rash Neurologic Neurologic: Reports numbness; Denies abnormal speech or focal weakness Endocrine Endocrinology: Denies cold intolerance, heat intolerance, polydipsia or polyuria Hematologic/Lymphatic Hematologic/Lymphatic: Denies easy bleeding or easy bruising Vital Signs Vital Signs Vital Signs: 11/22/21 09:36 Temperature 97.4 F L Temperature Source Temporal Pulse Rate 93 Blood Pressure 134/74 H Blood Pressure Mean 94 Blood Pressure Source Monitor Blood Pressure Position Semi-Fowlers Blood Pressure Location Right Arm Physical Exam Const alert, no apparent distress and healthy appearing General Appearance: cooperative, comfortable and well kempt Nutritional Appearance: obese HEENT Head and Scalp: normocephalic and atraumatic Eyes EOMs intact bilaterally Resp normal respiratory effort, normal air movement, no use of accessory muscles and clear to auscultation bilaterally Effort and Inspection: able to speak in complete sentences Cardio regular rate, regular rhythm and no murmurs GI normal to inspection, nondistended, normoactive bowel sounds Skin Wounds: wounds noted No malodorous Wound Narrative: Midline lower back ulcer with subcutaneous layer exposed. No tunneling noted today. No undermining or probing to bone. There is a small amount of slough and devitalized tissue. No periulcer erythema, warmth or tenderness. No purulent or malodorous drainage. Neuro oriented x3, moves all extremities and no focal motor deficits Psych mental status grossly normal, cooperative and affect normal Insight: insight good Judgement: judgement good Debridement Note Debridement Note Wound debrided: Low back ulcer Laterality: Not Applicable Type of Debridement: Excisional debridement Anesthesia Used: 4% Lidocaine Solution Depth: in the subcutaneous layer Percentage of wound debrided: 100 Instrument Used: 3mm curette Tissue Removed: Slough and devitalized tissue Severity: Fat Layer Exposed Amount of bleeding with debridement: Mild Bleeding Controlled with: Pressure Patient tolerated procedure: Patient tolerated procedure well Post-Debridement Measurements and Additional Note: Post-Debridement Measurements/Treatment WILLIAM - Nurse 1 - General Ulcer Assessment Start: 11/22/21 09:36 Freq: Status: Active Protocol: CINTIA Activity Type Activity Date Activity User E-Sign Co-Sign Detail Recorded Client Recorded Date Recorded By Document 11/22/21 09:36 GIOVANNA [id number] 11/22/21 09:38 GIOVANNA 11/22/21 09:36 - Today's Visit Information Type of service Follow-up Visit (Physician/PILLOWCASE CUTTER ) Arrival Mode Ambulatory, Walker Patient Identification Verified (Name & Yes ) Vital Signs Temperature (97.8 F-99.1 F) 97.4 F L Temperature Source Temporal Pulse Rate (60-100) 93 Pulse Location Monitor Blood Pressure (90/60-120/80) 134/74 H Blood Pressure Mean 94 Source Monitor Position Semi-Fowlers Blood Pressure Location Right Arm History Since Last Visit- (Skip if this is Patient's initial visit) Have you changed medications since your No last visit? Any new allergies or adverse reactions No Had a fall/change in ADL's that may No increase risk of falls Signs or symptoms of abuse and/or No neglect since last visit Have you been in the hospital since your No last visit? Has dressing in place as prescribed Yes Has compression in place as prescribed N/A Has offloadiing in place as prescribed N/A Experienced any changes in pain level or No management Left Footwear Regular Shoe Right Footwear Regular Shoe Pain Scale: 0-10 Numeric Is Patient Pain Free? Yes - Nurse 1 - General Ulcer Measurement Start: 11/22/21 09:36 Freq: Status: Active Protocol: Activity Type Activity Date Activity User E-Sign Co-Sign Detail Recorded Client Recorded Date Recorded By Document 11/22/21 09:36 GIOVANNA [id number] 11/22/21 09:38 GIOVANNA 11/22/21 09:36 Wound Center Nurse 1 #1 Lower Back -Current Size (cm) - Length 0.6 -Current Size (cm) - Width 0.8 -Current Size (cm) - Depth 0.3 -Total Square Cm 0.48 -Exudate Amt Small -Exudate Type Serosanguineous -Wound Margin Distinct, Outline Attached -Granulation Amt Medium (34-66%) -Granulation Quality [place] -Necrosis Amt Medium (34-66%) -Necrotic Tissue Type Adherent Slough -Texture (Joseline-wound Skin Appearance) Assessed, Scarring -Moisture (Joseline-wound Skin Appearance) No Abnormality, Assessed -Color (Joseline-wound Skin Appearance) No Abnormality, Assessed -Temperature (Joseline-wound Skin No Abnormality Appearance) (Pt Warm) -Tenderness on Palpation (Joseline-wound No Skin Appearance) -Ulcer Cleansing Rinsed/ Irrigated with Saline -Foul Odor after Cleansing No -Anesthetic Used 5% Lidocaine Gel - Nurse 2 - General Ulcer CM Notes Start: 11/22/21 09:36 Freq: Status: Active Protocol: Activity Type Activity Date Activity User E-Sign Co-Sign Detail Recorded Client Recorded Date Recorded By Document 11/22/21 09:54 [id number] 11/22/21 10:02 11/22/21 09:54 Wound Center Nurse 2 -Time 09:57 -Correct Patient Yes -Correct Side, Site, Position Yes -Correct Procedure Yes -Procedure Performed Yes -Type of Procedure Debridement -Clinical Debridement Subcutaneous -Tissue Removed Subcutaneous -Post Debridement (cm) - Length 0.8 -Post Debridement (cm) - Width 0.9 -Post Debridement (cm) - Depth 0.2 -Total Square (Post) (cm) 0.72 -Area of Debridement (cm) - Length 0.8 -Area of Debridement (cm) - Width 0.9 -Total Square (Area) (cm) 0.72 -Tunneling No -Undermining/Tunneling No -Circular Undermining No -Wound/Ulcer Outcome Not Healed -Ulcer Cleansing Rinsed/ Irrigated with Saline -Foul Odor after Cleansing No -Bioengineered Tissue No -Bleeding Controlled with Pressure -Debridement - Subq, 1st 20sq cm Yes Pain Scale: 0-10 Numeric Is Patient Pain Free? Yes - Nurse 3 - General Ulcer D/C NN Start: 11/22/21 09:36 Freq: Status: Active Protocol: Activity Type Activity Date Activity User E-Sign Co-Sign Detail Recorded Client Recorded Date Recorded By Document 11/22/21 10:03 [id number] 11/22/21 10:03 11/22/21 10:03 Wound Care Nurse 3 #1 Lower Back -Ulcer Cleansing Rinsed/ Irrigated with Saline -Foul Odor after Cleansing No -Primary Dressing Applied Promogran -Primary Dressing Covered/Secured with Dry Gauze, Secured with Tape -Promogran 1 Pain Scale: 0-10 Numeric Is Patient Pain Free? Yes WC - Visit Discharge Discharge Condition Stable Ambulatory Status Ambulatory, Walker Transportation Private Auto Medication Reconcilliation completed & Yes provided to patient/care provider Clinical Summary of Care Provided Yes Charges/Coding Procedures Integumentary 111xxx-113xx: 86641 [place] subq tissue 20 sq cm/< Assessment/Plan Assessment/Plan (1) Pressure ulcer of unspecified part of back, stage 3: CODE(S): L89.103 - Pressure ulcer of unspecified part of back, stage 3 (2) Obesity: CODE(S): E66.9 - Obesity, unspecified QUALIFIERS: Obesity type: unspecified obesity type Obesity class ification: unspecified obesity classification Serious obesity comorbidity presence: unspecified whether serious comorbidity present Qualified Code(s): E66.9 - Obesity, unspecified (3) Low back pain: CODE(S): M54.50 - Low back pain, unspecified QUALIFIERS: Chronicity: acute Back pain laterality: midline Sciatica presence: unspecified whether sciatica present Qualified Code(s): M54.50 - Low back pain, unspecified PLAN: Debridement performed today in clinic as annotated above. Promogran applied. At home wound-care instructions: Change Promogran dressing once daily. Cover with supersorb. Wash wounds daily with antibacterial soap and water, rinse with saline, and dry thoroughly before each dressing change. Use silicone tape to avoid irritation. Avoid use of wound VAC adhesive dressings, as this previously irritated the skin. Off-loading: The patient was instructed to avoid pressure and friction on the affected areas. Reposition every hour at minimum. Frequent ambulation is encouraged. Diet: Patient encouraged to increase protein intake while taking caution to avoid high carbohydrate and/or sugar intake. Also encouraged to take a multivitamin. Labs/cultures/imaging: Levaquin completed for MRSA. Fungal culture was negative. Follow-up: Return in 2 weeks for reassessment. Follow-up sooner should any new or concerning symptoms arise. Note: [employer] speech recognition claims account specialist software was used to create portions of this document. Sound-alike and misspelled words, as well as other claims account specialist errors may be contained in the documentation.
== END 2021-12-12 23:59 | disposition home or self-care (01) ==
LOC: WC 09:35
PROVIDERS: PCP Internal Medicine; Visit Provider Nurse Practitioner Family
DX: L89.153 Pressure ulcer of sacral region, stage 3 (principal); I10 Essential (primary) hypertension; J45.909 Unspecified asthma, uncomplicated; E66.9 Obesity, unspecified; Z79.899 Other long term (current) drug therapy; Z86.16 Personal history of COVID-19
CPT/HCPCS: 11042

== ENCOUNTER → 2022-04-29 | Outpatient (CLI) | payer MEDICAID, SELFPAY | END | disposition home or self-care (01) | LOC: SL 20:02 | PROVIDERS: PCP Internal Medicine; Referring Provider Internal Medicine Critical Care Medicine; Visit Provider Internal Medicine Critical Care Medicine | DX: G47.33 Obstructive sleep apnea (adult) (pediatric) (principal) | CPT/HCPCS: 95810 ==

== ENCOUNTER → 2022-09-12 | Outpatient (CLI) | payer MEDICAID, SELFPAY ==
[2022-09-12 12:54] VITALS: PULSE 100; PULSE 107; PULSE 109; PULSE 110; PULSE 111; PULSE 115; PULSE 92; O2SAT 88; O2SAT 96; O2SAT 97; O2SAT 98; O2SAT 99
--- NOTE | 2022-09-16 17:29 | PFT_ITS ---
[facility] [place], [place] Date of Study: September 12, 2022 Study Type: 6-minute walk test on room air Indication: Assess baseline: Currently on 2 to 4 L/min oxygen with sleep and as needed Referring provider: Daylin Monge NP Patient: Paige Hagan Date of 1965 Height: 5 feet 0 inches, weight: 300 pounds The patient had a 6-minute walk test per protocol. She completed 6 minutes of exercise, for a total length of 492 feet walked. The minimum oxygen saturation was 88% at 2 minutes, 2 L/min was applied, O2 saturation remained at 97% and above for the remainder of the walk on 2 L/min. Postexercise recovery O2 saturation was 98%. Pulse ranged between 101 111 beats per minute. Postexercise recovery pulse was 92. Baseline dyspnea on the Betzy scale preexercise was 0, maximal exercise was 4. Preexercise exertion Betzy scale was 6, at 6 minutes was 14. Number of rest taken, 0 Reported symptoms: 0. Impression: Decreased exercise tolerance due to underlying chronic conditions. The patient walked 492 feet. 2 L/min of oxygen relieved mild oxygen desaturation throughout the 6-minute walk. Recommendation: 2 L/min of continuous flow oxygen with exertion via nasal cannula. Pulse dose oxygen was not tested. Luis Geronimo MD [facility] [place]
== END | disposition home or self-care (01) ==
LOC: PSN 12:20
PROVIDERS: PCP Internal Medicine; Referring Provider Nurse Practitioner Acute Care; Visit Provider Nurse Practitioner Acute Care
DX: J96.11 Chronic respiratory failure with hypoxia (principal)
CPT/HCPCS: 94618

== ENCOUNTER → 2022-09-19 | Outpatient (CLI) | payer MEDICAID, SELFPAY ==
[2022-09-19 09:31] LABS: Base Excess -1 mmol/L (-2 to +2); Bicarbonate 23.6 mmol/L (22-26); Blood Gas Specimen Type ART; FI02 21; PO2 81 mmHG (75-100); SITE R Brach; SO2 96 % (95-99); Total Carbon Dioxide 25 mmol/L; pCO2 35.2 mmHg (35-45); pH 7.43 (7.35-7.45)
--- NOTE | 2022-09-19 18:34 | PFTCOMP_ITS ---
Date of Study: September 19, 2022 Study Type: Complete pulmonary function testing Indication: Chronic respiratory failure, weight 300 pounds. Height 60 inches. Referring Provider: Daylin Monge NP Patient: Paige Hagan : 1965 Arterial blood gas on room air done prior to this test was normal: pH 7.43/PCO2 35/PO2 81/SaO2 96% Spirometry pre- and post bronchodilator showed: 1. No evidence of large or small airway obstruction, which is corroborated by the flow volume loop morphology 2. No response to bronchodilator 3. Moderately reduced FVC and FEV1, further discussed in the lung volume section below. 4. T this test met [employer] standards of spirometry Lung volumes by plethysmography showed mild changes that may be caused by obesity related pseudo restriction 1. Total lung capacity is just below normal limits at 79% predicted, with normal residual volume and RV/TLC. 2. Comparison of plethysmographic vital capacity and total lung capacity on spirometry is comparable, between 60 and 61%. 3. Expiratory reserve volume is not reported but appears severely reduced on flow volume loop. 4. Decreases in lung volumes are mild, and likely related to obesity related pseudo restriction. Clinical correlation is recommended. DLCO by single breath carbon monoxide technique showed: 1. Moderately reduced DLCO, which normalizes when adjusted for lung volumes. This may also be related to obesity related pseudo restriction Luis Geronimo MD MS FCCP FACP [facility]monary [facility]
== END | disposition home or self-care (01) ==
LOC: PSN 09:08
PROVIDERS: PCP Internal Medicine; Referring Provider Nurse Practitioner Acute Care; Visit Provider Nurse Practitioner Acute Care
DX: J96.11 Chronic respiratory failure with hypoxia (principal)
CPT/HCPCS: 36600; 82803; 94060; 94726; 94729

== ENCOUNTER → 2024-07-27 | Outpatient (CLI) | payer MEDICARE, SELFPAY | END | disposition home or self-care (01) | PROVIDERS: PCP Internal Medicine; Referring Provider Nurse Practitioner Acute Care; Visit Provider Nurse Practitioner Acute Care | DX: G47.33 Obstructive sleep apnea (adult) (pediatric) (principal) | CPT/HCPCS: 95810 ==

== ENCOUNTER → 2024-08-03 | Outpatient (CLI) | payer MEDICARE, SELFPAY ==
[2024-08-03 12:59] VITALS: PULSE 100; PULSE 110; PULSE 113; PULSE 116; PULSE 118; PULSE 120; PULSE 99; O2SAT 88; O2SAT 91; O2SAT 92; O2SAT 93; O2SAT 94; O2SAT 95; O2SAT 96
--- NOTE | 2024-08-03 13:02 | CPS ---
PATIENT HAS O2 AT HOME THROUGH [facility] AND USED HER ROLLATOR FOR AMBULATION ASSISTANCE DURING WALK TESTING. WALK TEST BEGAN WITH PATIENT ON ROOM AIR. SHE RESTED FOR MINUTES 2 AND 3 D/T INCREASED WOB, AND O2 APPLIED AT 2LPM DEMAND FLOW ON PT'S OWN POC D/T SPO2 88%. REMAINDER OF WALK FINISHED WITH PT ON 2LPM. SHE WALKED 361 FT.
--- NOTE | 2024-08-08 11:59 | PCM.PSN.6M ---
PSN 6 Minute Walk Test 6 Minute Walk Test 6 Minute Walk Test: 6 Minute Walk Test PSN:6-Minute Walk Test Start: 08/03/24 12:59 Freq: Status: Active Protocol: [id number].[id number] Document 08/03/24 12:59 [facility] (Rec: 08/03/24 13:07 [facility] [id number]) 6 Minute Walk Test Date Performed 08/03/24 Time Performed 12:30 Height 5 ft Weight: 320 lb Weight in Pounds 320.[address]: Daylin Monge BUSINESS CONT[employer]UITY MANAGEMENT DIRECTOR FIO2 (% Oxygen) 2 Assistive device Walker used: Pre-test Oxygen Delivery Room Air Method Pulse Ox (%) 96 Pulse Rate (60-100 100 beats/min) Dyspnea Betzy Scale ( 2 0-10) Reported Symptoms Increased Work of Breathing 1st minute Oxygen Delivery Room Air Method Pulse Ox (%) 94 Pulse Rate (60-100 110 H beats/min) Dyspnea Betzy Scale ( 3 0-10) Number of Rests 0 Taken Reported Symptoms Increased Work of Breathing 2nd minute Oxygen Delivery Room Air Method Pulse Ox (%) 91 Pulse Rate (60-100 113 H beats/min) Dyspnea Betzy Scale ( 4 0-10) Number of Rests 1 Taken Reported Symptoms Increased Work of Breathing 3rd minute Oxygen Delivery Room Air Method Pulse Ox (%) 88 Pulse Rate (60-100 110 H beats/min) Dyspnea Betzy Scale ( 4 0-10) Number of Rests 1 Taken Reported Symptoms Increased Work of Breathing 4th minute Oxygen Flow Rate (L/ 2 min) (L/min) Oxygen Delivery Nasal Cannula Method Pulse Ox (%) 93 Pulse Rate (60-100 118 H beats/min) Dyspnea Betzy Scale ( 4 0-10) Number of Rests 0 Taken Reported Symptoms Increased Work of Breathing 5th minute Oxygen Flow Rate (L/ 2 min) (L/min) Oxygen Delivery Nasal Cannula Method Pulse Ox (%) 92 Pulse Rate (60-100 116 H beats/min) Dyspnea Betzy Scale ( 4 0-10) Number of Rests 0 Taken Reported Symptoms Increased Work of Breathing 6th minute Oxygen Flow Rate (L/ 2 min) (L/min) Oxygen Delivery Nasal Cannula Method Pulse Ox (%) 91 Pulse Rate (60-100 120 H beats/min) Dyspnea Betzy Scale ( 4 0-10) Number of Rests 0 Taken Reported Symptoms Increased Work of Breathing Post-test Oxygen Flow Rate (L/ 2 min) (L/min) Oxygen Delivery Nasal Cannula Method Pulse Ox (%) 95 Pulse Rate (60-100 99 beats/min) Dyspnea Betzy Scale ( 2 0-10) Reported Symptoms Increased Work of Breathing Full Laps Walked 6 Partial Lap, Number 7 of Tiles Walked Total Distance 361 Walked (ft) 08/03/24 13:02 Cardiopulmonary Services by June Licea PATIENT HAS O2 AT HOME THROUGH [facility] AND USED HER ROLLATOR FOR AMBULATION ASSISTANCE DURING WALK TESTING. WALK TEST BEGAN WITH PATIENT ON ROOM AIR. SHE RESTED FOR MINUTES 2 AND 3 D/T INCREASED WOB, AND O2 APPLIED AT 2LPM DEMAND FLOW ON PT'S OWN POC D/T SPO2 88%. REMAINDER OF WALK FINISHED WITH PT ON 2LPM. SHE WALKED 361 FT. Initialized on 08/03/24 13:02 - END OF NOTE Interpretation Interpretation: The patient ambulated 361 feet over the course of 6 minutes beginning on room air with the use of a walker. Pretesting oxygen saturation was noted to be 96% on room air. With ambulation, the dorinda oxygen saturation was 88%. 2 L/min of supplemental oxygen was applied and the patient was able to complete the remainder of the test. Recommendations Recommendations: 2 L/min of supplemental oxygen should be utilized with exertion.
== END | disposition home or self-care (01) ==
LOC: PSN 12:31
PROVIDERS: PCP Internal Medicine; Referring Provider Nurse Practitioner Acute Care; Visit Provider Nurse Practitioner Acute Care
DX: J96.11 Chronic respiratory failure with hypoxia (principal)
CPT/HCPCS: 94618

== ENCOUNTER → 2024-08-18 | Outpatient (CLI) | payer MEDICARE, SELFPAY | END | disposition home or self-care (01) | PROVIDERS: PCP Internal Medicine; Referring Provider Nurse Practitioner Acute Care; Visit Provider Nurse Practitioner Acute Care | DX: G47.33 Obstructive sleep apnea (adult) (pediatric) (principal) | CPT/HCPCS: 95811 ==

== ENCOUNTER → 2024-09-02 | Outpatient (CLI) | payer MEDICARE, SELFPAY | END | disposition home or self-care (01) | LOC: SL 09:52 | PROVIDERS: PCP Internal Medicine; Referring Provider Nurse Practitioner Acute Care; Visit Provider Nurse Practitioner Acute Care | DX: Z46.89 Encounter for fitting and adjustment of other specified devices (principal) ==